=== PATIENT | male | born 1985 | race Caucasian/White ===

== ENCOUNTER 2024-10-24 20:14 | Emergency (ER) | payer MEDICAID, SELFPAY ==
[2024-10-24 20:14] VITALS: BMI 26.2
--- NOTE | 2024-10-24 20:17 | EKG_ITS ---
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
[2024-10-24 20:21] VITALS: BP 145/96; PULSE 95; RESP 18; TEMP 36.7; O2SAT 99
[2024-10-24] MEDS: DIAZEPAM 5 MG TABLET PO (20:52)
--- NOTE | 2024-10-24 22:10 | PD.EDANX ---
ED Anxiety RME/HPI General Chief Complaint: Arrhythmia/Palpitations Stated Complaint: RAPID HEART RATE Time Seen by Provider: 10/24/24 20:40 Arrival date/time: 10/24/24 20:14 39M with history of anxiety, HTN, and possible IBD presents to ED with heart palps. Limitations: no limitations Related Data Previous Rx's ?Medication ?Instructions ?Recorded diazepam 5 mg tablet (Valium) 5 mg PO BID PRN anxiety #5 tabs 10/24/24 Allergies Allergy/AdvReac Type Severity Reaction Status Date / Time Penicillins Allergy Redness of Verified 10/24/24 20:14 Skin Review of Systems Cardiovascular Cardiovascular: Reports as per HPI and Reports palpitations Endocrine Endocrine: Reports palpitations Past Medical History Past Medical History NEUROLOGIC: Negative Neurological Disorders or Seizures CARDIAC: Negative Cardiac Disorders, Congestive Heart Failure, Hypertension or Hypotension RESPIRATORY: Negative Chronic Obstructive Pulmonary Disease (COPD) or Asthma GENITOURINARY: Negative Renal Disease MUSCULOSKELETAL: Negative Musculoskeletal Disorders ENDOCRINE: Negative Diabetes Mellitus Type 1 or Diabetes Mellitus Type 2 HEMATOLOGIC: Negative Blood Disorders or Sickle Cell Disease OTHER HISTORY: Negative Autoimmune Disease, Blood Transfusions, Blood Transfusion Reaction, Anesthesia Reactions, MRSA or Cancer Family History FAMILY HISTORY: Positive Family Cardiac Disorders (father), Family Gastrointestinal Problems (polyps uncle and grandfather) and Family Cancer (aunt); Negative Family Psychiatric Problems or Family Anesthesia Reaction Surgical History SURGICAL: Negative Endocrine Surgery, Ear Surgery, Abdominal Surgery, Nephrectomy, Joint Replacement or Neurologic Surgery Social History SMOKING STATUS: Never smoker SECOND HAND EXPOSURE: No ED Exam General Limitations: Present no limitations General appearance: Present alert, in no apparent distress and anxious Head Head exam: Present atraumatic Eye Eye exam: Present normal appearance, PERRL and EOMI ENT ENT exam: Present normal exam, normal oropharynx and mucous membranes moist Neck Neck exam: Present normal inspection, full ROM and trachea midline Chest Chest inspection: Present normal inspection and symmetric chest wall rise Respiratory Respiratory exam: Present normal lung sounds bilaterally Cardiovascular Cardiovascular exam: Present regular rate, normal rhythm and normal heart sounds Abdominal Exam Abdominal exam: Present soft and normal bowel sounds Extremities Exam Extremities exam: Present normal inspection and full ROM Back Exam Back exam: Present normal inspection and full ROM Neurological Exam Neurological exam: Present alert, oriented X3 and CN II-XII intact Psychiatric Psychiatric exam: Present normal affect and normal mood Skin Skin exam: Present warm, dry, intact and normal color Course Quality Measures none Orders Category Date Time Status EKG (ED ONLY) *Do not use* NOW Care 10/24/24 20:17 Completed EKG (ED Only) Stat Exams 10/24/24 20:17 Draft Diazepam [Valium] Med 10/24/24 20:40 Discontinued 5 mg PO X1 ONE Vital Signs Vital signs: Vital Signs Temperature 98.1 F 10/24/24 20:21 Pulse Rate 95 10/24/24 20:21 Respiratory Rate 18 10/24/24 20:21 Blood Pressure 145/96 H 10/24/24 20:21 Pulse Oximetry (%) 99 10/24/24 20:21 Oxygen Delivery Method Room Air 10/24/24 20:21 Anxiety MDM Narrative MDM Narrative: 39M with history of anxiety, HTN, and possible IBD presents to ED with heart palps. Physical exam reveals clear ENT and lungs. RRR. Patient is afebrile, alert, but anxious. EKG is NSR. Valium improved symptoms. Patient data External records reviewed:: [facility] previous records Clinical information provided by:: patient Social determinants that could affect healthcare access:: mental health Patient has the following chronic illnesses:: history of anxiety, HTN, and possible IBD How is presenting disease/condition affected by chronic disease/condition?: exacerbated by Evaluation data The following diagnostics were reviewed and interpreted by me:: EKG tracing(s) Lab and/or radiology exams considered but not ordered:: ordered Interpretation Summary: above Medications / Prescriptions Medications or Prescriptions considered but not ordered:: ordered Medication administrations:: Medication Administration History Discontinued Medications Diazepam (Diazepam 5 Mg Tablet) 5 mg PO X1 ONE Stop: 10/24/24 20:41 Last Admin: 10/24/24 20:52 Dose: 5 mg Documented By: Consultations Consultation(s) initiated? (list below): No Diagnosis Differential diagnosis anxiety: hyperventilation, panic disorder and acute anxiety Most likely diagnosis given after review of the tests above:: anxiety Admission Indicated Admission indicated?: not indicated Admission Request Was there a request for admission?: No Disposition Plan Disposition Plan: Discharge Discharge Attestation Discharge Attestation: The patient and all family members were given an opportunity to ask questions and understood the discharge instructions. Discharge instructions specifically effects, indications for sooner follow up or return to the emergency department, and the expected course of current diagnosis. Patient condition: Stable Discharge Plan Plan Patient Disposition: HOME (Self Care) Disposition Comment: Stable Prescriptions/Referrals Prescriptions/Med Rec: New diazepam [Valium] 5 mg tablet 5 mg PO BID PRN (Reason: anxiety) Qty: 5 0RF Referrals: Tricia Laird NP [Primary Care Provider] - In 1 week Problem List Clinical Impression: Anxiety Patient/Caregiver Discharge Instructions Education Materials: Your Body's Response to Anxiety Additional Instructions: Please follow-up with PCP within 24-48 hours and return immediately if symptoms worsen. Recommend seeing PCP for SSRI and/or referral to psych/counseling. Print Language: New Zealander Stand Alone Forms: Patient Portal Info Letter PA/ENVIRONMENTAL TECHNICAL OFFICER Supervising Physician SOLOMON/ENVIRONMENTAL TECHNICAL OFFICER Supervising Physician: Dr. Sultana
[2024-10-24 22:32] VITALS: BP 127/83; PULSE 77; RESP 18; TEMP 36.7; O2SAT 98
== END 2024-10-24 23:05 | disposition home or self-care (01) ==
PROVIDERS: Emergency Provider Emergency Medicine; PCP Nurse Practitioner Family
DX: F41.9 Anxiety disorder, unspecified (principal); I10 Essential (primary) hypertension
CPT/HCPCS: 93005; 99283; A9270

== ENCOUNTER → 2024-11-04 | Outpatient (CLI) | payer MEDICAID, SELFPAY ==
--- NOTE | 2024-11-04 14:30 | ECHO_ITS ---
Transthoracic Echo Report Ht (in): 70 Wt (lb): 180 Exam Location: Echo Lab Status: Preadmit General Machine Operator: ALIYAH Hodges^^^^ Indications: Procedure Performed: BP: 127 / 78 HR: 101 Technical Quality: Good MEASUREMENTS (Male / Female) Normal Values 2D ECHO LV Diastolic Diameter PLAX 5.0 cm 4.2 - 5.9 / 3.9 - 5.3 cm LV Systolic Diameter PLAX 3.3 cm IVS Diastolic Thickness 1.0 cm 0.6 - 1.0 / 0.6 - 0.9 cm LVPW Diastolic Thickness 0.8 cm 0.6 - 1.0 / 0.6 - 0.9 cm LV Relative Wall Thickness 0.4 LVOT Diameter 2.1 cm Aortic Root Diameter 3.2 cm LA Systolic Diameter LX 3.4 cm 3.0 - 4.0 / 2.7 - 3.8 cm LV Ejection Fraction MOD 4C 57.1 % LV Cardiac Index MOD 4C 3512.1 cm?/min?m? LV Ejection Fraction 4C AL 58.3 % LV Cardiac Index 4C AL 3754.2 cm?/min?m? Ascending Aorta Diameter 3.3 cm DOPPLER AV Peak Velocity 136.0 cm/s AV Peak Gradient 7.4 mmHg AV Mean Gradient 4.0 mmHg AV Velocity Time Integral 24.5 cm AI Peak Velocity 251.0 cm/s AI Peak Gradient 25.2 mmHg AI Pressure Half Time 322.0 ms LVOT Peak Velocity 132.0 cm/s LVOT Peak Gradient 7.0 mmHg LVOT Velocity Time Integral 25.8 cm LVOT Cardiac Index 4470.8 cm?/min?m? AV Area Cont Eq vti 3.6 cm? AV Area Cont Eq pk 3.4 cm? MV Area PHT 5.2 cm? Mitral E Point Velocity 67.7 cm/s Mitral A Point Velocity 68.7 cm/s Mitral E to A Ratio 1.0 LV E' Lateral Velocity 11.1 cm/s Mitral E to LV E' Lateral Ratio 6.1 LV E' Septal Velocity 9.4 cm/s Mitral E to LV E' Septal Ratio 7.2 TR Peak Velocity 253.5 cm/s TR Peak Gradient 25.7 mmHg PV Peak Velocity 121.0 cm/s PV Peak Gradient 5.9 mmHg RVOT Peak Velocity 87.9 cm/s FINDINGS Left Ventricle Normal left ventricular size, wall thickness, systolic function with no obvious regional wall motion abnormalities. There is grade I diastolic dysfunction of the left ventricle (impaired relaxation pattern). The left ventricular ejection fraction is normal, estimated at 60-65%. Right Ventricle The right ventricle is normal in size and systolic function. The estimated right ventricular systolic pressure, 26 mmHg. Left Atrium The left atrium is normal by two-dimensional, color flow and Doppler imaging with no structural abnormalities, no thrombus formation present. Right Atrium The right atrium is normal by two-dimensional imaging, color flow and Doppler imaging with no structural abnormalities, no thrombus formation present. Atrial Septum The interatrial septum appears normal with no evidence of a shunt. Aorta The aorta is normal by two-dimensional, color flow and Doppler interrogation. Mitral Valve Trace to mild mitral regurgitation. Aortic Valve Trace to mild aortic valve regurgitation. Tricuspid Valve There is mild tricuspid valve regurgitation. Pulmonic Valve Trivial pulmonic valve regurgitation. Vessels The pulmonary artery appears normal. The inferior vena cava pulmonary and hepatic veins appear normal. Pericardium The pericardium is normal by two-dimensional imaging. There is no significant pericardial effusion. CONCLUSIONS Indications: Palpitations Normal LV size and function with an estimated EF of 60 to 65%. Normal diastolic function. Normal RV size and function. Trace MR and TR Hudson Patricia (Electronically Signed) Final Date: 06 November 2024 00:32
== END | disposition home or self-care (01) ==
PROVIDERS: PCP Nurse Practitioner Family; Referring Provider Nurse Practitioner Family; Visit Provider Nurse Practitioner Family
DX: I08.1 Rheumatic disorders of both mitral and tricuspid valves (principal)
CPT/HCPCS: 93306

== ENCOUNTER 2024-11-11 16:56 | Emergency (ER) | payer MEDICAID, SELFPAY ==
[2024-11-11 16:57] VITALS: BMI 25.2
[2024-11-11 17:48] VITALS: BP 120/81; PULSE 64; RESP 18; TEMP 36.9; O2SAT 99
--- NOTE | 2024-11-11 17:51 | PD.EDRME ---
Rapid Medical Screening Exam RME Arrival date/time: 11/11/24 16:56 Chief Complaint: Arrhythmia/Palpitations Time Seen by Provider: 11/11/24 17:09 Vital signs: Vital Signs Temperature 98.5 F 11/11/24 17:48 Pulse Rate 64 11/11/24 17:48 Respiratory Rate 18 11/11/24 17:48 Blood Pressure 120/81 11/11/24 17:48 Pulse Oximetry (%) 99 11/11/24 17:48 Oxygen Delivery Method Room Air 11/11/24 17:48 RME Narrative: Palpitations and dizziness that initiated today, smart watch stated patient was in A-fib. Denies cardiac history. Reports mild chest pain.
--- NOTE | 2024-11-11 17:52 | EKG_ITS ---
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
--- NOTE | 2024-11-11 17:52 | XR_ITS ---
Examination: PA chest single view TECHNIQUE: Upright PA chest single view Examination time: November 11, 2024 at 1810 hours INDICATIONS: Chest pain today with shortness of breath FINDINGS: Normal heart size Lungs are clear. Osseous structures are intact IMPRESSION: No active disease
[2024-11-11 18:07] LABS: Basophils # (Auto) 0.1 Thou/mm3 (0.0-0.2); Basophils % (Auto) 1 % (0-2.5); Eosinophils # (Auto) 0.2 Thou/mm3 (0.0-0.5); Eosinophils % (Auto) 2 % (0-10); Hematocrit 40.6 % (41.0-53.0); Hemoglobin 14.3 g/dL (13.5-16.0); Immature Granulocytes % (Auto) 0 % (0-0); Immature Granulocytes Auto 0.02 Thou/mm3 (0.00-0.00); Lymphocytes # (Auto) 1.5 Thou/mm3 (1.0-4.8); Lymphocytes % (Auto) 23 % (10-50); Mean Corpuscular HGB Conc 35.2 g/dl (31.0-37.0); Mean Corpuscular Hemoglobin 29.9 pg (25.0-35.0); Mean Corpuscular Volume 85 fL (80-100); Monocytes # (Auto) 0.4 Thou/mm3 (0.0-0.8); Monocytes % (Auto) 6 % (0-12); Neutrophils # (Auto) 4.4 Thou/mm3 (1.8-7.7); Neutrophils % (Auto) 68 % (37-80); Nucleated Red Blood Cell % 0 /100 WBC (0); Platelet Count 222 Thou/mm3 (140-440); RDW Standard Deviation 39.7 fL (35.1-43.9); Red Blood Count 4.79 Miln/mm3 (4.50-5.90); White Blood Count 6.5 Thou/mm3 (3.8-10.6)
[2024-11-11 19:00] LABS: Alanine Aminotransferase 15 U/L (10-49); Albumin, Serum 4.6 gm/dL (3.5-5.0); Alkaline Phosphatase 60 U/L (46-116); Anion Gap 7 (7-16); Aspartate Amino Transferase 13 U/L (0-34); BUN/Creatinine Ratio 12 Ratio (12-20); Bilirubin,Total 0.4 mg/dL (0.3-1.2); Blood Urea Nitrogen 14 mg/dL (9-23); Calcium 9.5 mg/dL (8.3-10.6); Calcium (Corrected) 9.5 mg/dL (8.5-10.1); Carbon Dioxide 26.7 mMol/L (20.0-31.0); Chloride 104 mMol/L (98-107); Creatinine (Component) 1.2 mg/dL (0.6-1.3); Estimated Creatinine Clearance 83.6 mL/min (>60); Free T4 (Free Thyroxine) 1.09 ng/dL (0.89-1.76); Globulin 2.3 gm/dL (2.3-3.5); Glucose 123 mg/dL (74-106); Magnesium 2.3 mg/dL (1.6-2.6); Osmolality,Calculated 277 (275-295); Potassium 3.9 mMol/L (3.4-5.1); Sodium 138 mMol/L (136-145); Thyroid Stimulating Hormone 1.11 uIU/mL (0.55-4.78); Total Protein 6.9 gm/dL (5.7-8.2); Troponin I < 0.002 ng/mL (0.0-0.045); eGFR > 60 See Note
[2024-11-11 20:16] LABS: B-Type Natriuretic Peptide < 20 pg/mL (0-100)
[2024-11-11 20:25] VITALS: BP 134/85; PULSE 87; RESP 16; TEMP 36.8; O2SAT 100
--- NOTE | 2024-11-11 21:30 | PD.EDARRY ---
ED Arrhythmia Palp. RME/HPI General Chief Complaint: Arrhythmia/Palpitations Stated Complaint: palpitations x 30 min ago, hx anxiety Time Seen by Provider: 11/11/24 17:09 Arrival date/time: 11/11/24 16:56 RME / HPI RME / HPI narrative: Palpitations and dizziness that initiated today, smart watch stated patient was in A-fib. Denies cardiac history. Reports mild chest pain. This section includes all my notes and documentations, including HPI, PE, and ED course. Juan Sultana MD HPI: 39-year-old male here to be evaluated with palpitations on and off for months. But had 2 episodes today which showed atrial fibrillation on his phone. No chest pain or shortness of breath. No fever or chills. No syncope or near syncope. No diaphoresis. No nausea or vomiting. No leg pain or swelling. No other complaints. ROS: All negative except as documented in HPI. Physical Exam: General: Alert and oriented. Appears anxious. Eyes: Conjunctivae and lids clear. ENT: No nasal congestion. Neck: Supple. Heart: RRR. Lungs: No respiratory distress. Good air movement. No rhonchi, wheezing, rales. Abdomen: Soft and nontender. Skin: Warm and dry. Neuro: Alert and oriented X 3. I reviewed all diagnostic test results. My interpretation of the EKG is sinus rhythm with no acute ST?T changes. My interpretation of the chest x-ray is no acute findings. Blood tests unremarkable, including negative troponin and normal TSH. At this point, diagnoses include palpitations, probably due to anxiety. Prescribed low-dose metoprolol and recommended more outpatient cardiac workup. Based on my best medical judgment, made decision no further evaluation or treatment indicated at this time. Patient understands and agrees to the discharge instructions customized and printed, see below. Discharge instructions from Dr. Sultana: 1. After extensive evaluation, there is no life-threatening condition.? Such as heart attack or pneumothorax (collapsed lung). 2. Your symptoms may be due to underlying stress or anxiety or nerves.? This is fairly common. 3. Take small dose of metoprolol daily as prescribed. Will slow your heart and help your symptoms. 4. See a private doctor on 11/12/2024 for recheck and further care. To make sure there is no serious underlying heart condition, ask to help you get more tests for your heart that cannot be done here in the ER.? Such as Holter Monitor (cardiac monitoring at home from a day to even a month), heart stress test (on treadmill or with medication), echocardiogram (imaging of your heart structures), heart catherization (checking for blockages in your heart arteries), and a referral to see a Packaging Materials Inspector. 5. Seek immediate medical care with worsening or with any concerns.?? Juan Sultana MD Related Data Previous Rx's ?Medication ?Instructions ?Recorded diazepam 5 mg tablet (Valium) 5 mg PO BID PRN anxiety #5 tabs 10/24/24 metoprolol succinate 25 mg 25 mg PO QDAY #30 tabs 11/11/24 tablet,extended release 24 hr Allergies Allergy/AdvReac Type Severity Reaction Status Date / Time Penicillins Allergy Redness of Verified 10/24/24 20:14 Skin Course Quality Measures none Orders Category Date Time Status EKG (ED ONLY) *Do not use* NOW Care 11/11/24 17:52 Completed CXR [XR chest 1V] Stat Exams 11/11/24 17:52 Completed EKG (ED Only) Stat Exams 11/11/24 17:52 Draft BNP [B-Type Natriuretic Peptide] Stat Lab 11/11/24 17:59 Completed CBC Stat Lab 11/11/24 17:59 Completed CMP [Comprehensive Metabolic Panel] Stat Lab 11/11/24 17:59 Completed Free T4 (Free Thyroxine) Stat Lab 11/11/24 17:59 Completed Magnesium Stat Lab 11/11/24 17:59 Completed TSH [Thyroid Stimulating Hormone] Stat Lab 11/11/24 17:59 Completed Troponin I Stat Lab 11/11/24 17:59 Completed Vital Signs Vital signs: Vital Signs Temperature 98.5 F 11/11/24 17:48 Pulse Rate 64 11/11/24 17:48 Respiratory Rate 18 11/11/24 17:48 Blood Pressure 120/81 11/11/24 17:48 Pulse Oximetry (%) 99 11/11/24 17:48 Oxygen Delivery Method Room Air 11/11/24 17:48 Arrhythmia/Palpitations Patient data External records reviewed:: [facility] previous records Clinical information provided by:: patient and spouse Social determinants that could affect healthcare access:: none Patient has the following chronic illnesses:: Anxiety How is presenting disease/condition affected by chronic disease/condition?: exacerbated by Evaluation data The following diagnostics were reviewed and interpreted by me:: lab results, radiology exam(s) and EKG tracing(s) Lab and/or radiology exams considered but not ordered:: None Interpretation Summary: Normal diagnostics Medications / Prescriptions Medications or Prescriptions considered but not ordered:: None Medication administrations:: None Consultations Consultation(s) initiated? (list below): No Diagnosis Differential diagnosis arrhythmia/palpitations: palpitations, anxiety, sinus tachycardia, artial fibrillation, artial flutter, ventricular premature beats, supraventricular tachycardia and ventricular tachycardia Most likely diagnosis given after review of the tests above:: Anxiety Admission Indicated Admission indicated?: not indicated Explain why admission is indicated or not indicated:: There is no indication for admission. Admission Request Was there a request for admission?: No Disposition Plan Disposition Plan: Discharge Discharge Attestation Discharge Attestation: The patient and all family members were given an opportunity to ask questions and understood the discharge instructions. Discharge instructions specifically effects, indications for sooner follow up or return to the emergency department, and the expected course of current diagnosis. Patient condition: Stable Discharge Plan Plan Patient Disposition: HOME (Self Care) Prescriptions/Referrals Prescriptions/Med Rec: New metoprolol succinate 25 mg tablet extended release 24 hr 25 mg PO QDAY Qty: 30 0RF No Action diazepam [Valium] 5 mg tablet 5 mg PO BID PRN (Reason: anxiety) Qty: 5 0RF Referrals: Tricia Laird PIECE MEAT TRIMMER [Primary Care Provider] - In 1 week Problem List Clinical Impression: Palpitations Patient/Caregiver Discharge Instructions Discharge Activity: activity as tolerated Education Materials: ED Palpitations Additional Instructions: Discharge instructions from Dr. Sultana: 1. After extensive evaluation, there is no life-threatening condition.? Such as heart attack or pneumothorax (collapsed lung). 2. Your symptoms may be due to underlying stress or anxiety or nerves.? This is fairly common. 3. Take small dose of metoprolol daily as prescribed. Will slow your heart and help your symptoms. 4. See a private doctor on 11/12/2024 for recheck and further care. To make sure there is no serious underlying heart condition, ask to help you get more tests for your heart that cannot be done here in the ER.? Such as Holter Monitor (cardiac monitoring at home from a day to even a month), heart stress test (on treadmill or with medication), echocardiogram (imaging of your heart structures), heart catherization (checking for blockages in your heart arteries), and a referral to see a Packaging Materials Inspector. 5. Seek immediate medical care with worsening or with any concerns.?? Print Language: Arabic Stand Alone Forms: Nadeen Award Info., Patient Portal Info Letter
[2024-11-11 22:40] VITALS: BP 138/96; PULSE 72; RESP 15; TEMP 36.8; O2SAT 99
== END 2024-11-11 22:41 | disposition home or self-care (01) ==
PROVIDERS: Physician Assistant; Emergency Provider Emergency Medicine; PCP Nurse Practitioner Family
DX: R00.2 Palpitations (principal); R42 Dizziness and giddiness; I48.91 Unspecified atrial fibrillation; R07.9 Chest pain, unspecified
CPT/HCPCS: 36415; 71045; 80053; 83735; 83880; 84439; 84443; 84484; 85025; 93005; 99283

== ENCOUNTER 2024-12-04 08:05 | Day surgery (SDC) | payer MEDICAID, SELFPAY ==
[2024-12-03 13:38] VITALS: BMI 25.1
[2024-12-04] VITALS (17 sets, daily range): BP systolic 101–154; BP diastolic 76–117; PULSE 76–138; RESP 12–20; TEMP 36.2–36.3; O2SAT 94–100; BMI 24.5
[2024-12-04] MEDS: RINGERS LACTATED 1000 ML 1,000 ML 20 ML IV (10:58)
[2024-12-04] MEDS: DiphenhydrAMINE INJ 50 MG/ML VIAL 25 MG IV (11:02)
[2024-12-04] MEDS: MEPERIDINE INJ 25 MG/ML VIAL (ASD USE ONLY) IV (11:05)
[2024-12-04] MEDS: fentaNYL CIT INJ 50 mCg/ML AMP 2ML (ASD USE ONLY) IV (11:07)
[2024-12-04] MEDS: MIDAZOLAM INJ 1 MG/ML VIAL 2 ML (ASD USE ONLY) 2 MG IV (11:22)
[2024-12-04] MEDS: ONDANSETRON INJ 2 MG/ML INJ 2 ML 4 MG IV (11:23)
[2024-12-04] MEDS: LIDOCAINE JELLY 2% (Urojet) 10 ML TUBE TOP (11:30)
--- NOTE | 2024-12-04 13:21 | SUR.PHASEII ---
1210 Pt more awake and alert. Denies pain, N/V or difficulty swallowing. Migdalia PO fluids. 1235 Pt assessment unchanged, except pt c/o cramping. Amb with steady gait. Able to dress self. Pt and given dc instructions. Both state understanding. Pt back to bathroom. Released flatus. States, feels better. Meets dc criteria-to home.
== END 2024-12-04 12:35 | disposition home or self-care (01) ==
PROVIDERS: PCP Nurse Practitioner Family; Referring Provider Internal Medicine Gastroenterology; Visit Provider Internal Medicine Gastroenterology
PROC: 0DBE8ZX Excision of Large Intestine, Via Natural or Artificial Opening Endoscopic, Diagnostic (ICD-10-PCS; CPT 45380; principal; 2024-12-04 10:00)
PROC: (CPT 43239; 2024-12-04 10:00)
DX: D12.2 Benign neoplasm of ascending colon (principal); K64.9 Unspecified hemorrhoids; K29.50 Unspecified chronic gastritis without bleeding
CPT/HCPCS: 45385; 45380; 43239; A4649; J1200; J2175; J2250; J2405; J3010; J7120

== ENCOUNTER 2025-01-13 19:22 | Emergency (ER) | payer MEDICAID, SELFPAY ==
[2025-01-13 19:22] VITALS: BMI 24.8
--- NOTE | 2025-01-13 19:24 | EKG_ITS ---
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
[2025-01-13 20:23] VITALS: BP 122/78; PULSE 83; RESP 18; TEMP 37; O2SAT 98
--- NOTE | 2025-01-13 20:56 | EDNOTE_ITS ---
ED Arrhythmia Palp. RME/HPI General Chief Complaint: Arrhythmia/Palpitations Stated Complaint: RAPID HR, CHEST PAIN SINCE LAST NIGHT Time Seen by Provider: 01/13/25 20:25 Arrival date/time: 01/13/25 19:22 39M with history of anxiety and HTN presents to ED with episode of heart palps and CP yesterday. Patient took 2 mg Valiu, which helped a bit. Patient has pending stress test and Holter monitor with engraver hand soft metals on Sunday. Limitations: no limitations Related Data Home Medications ?Medication ?Instructions ?Recorded ?Confirmed lisinopril 10 mg tablet 10 mg PO DAILY High blood pr essure 12/03/24 12/04/24 diazepam 2 mg tablet 2 mg PO BID 12/04/24 5 Held on 12/04/24. Instructions: Resume on 12/05/24. dicyclomine 10 mg capsule 10 mg PO BID PRN abdominal p ain 12/04/24 12/04/24 loratadine 10 mg tablet (Allergy 10 mg PO QDAY 5 12/04/24 Relief (loratadine)) Allergies Allergy/AdvReac Type Severity Reaction Status Date / Time Penicillins Allergy Redness of Verified 01/13/25 19:24 Skin Review of Systems Review of Systems Systems Reviewed: All systems reviewed, normal except as documented Constitutional Constitutional: Reports system reviewed and no additional complaints, except as documented, Denies fever(s) and Denies headache(s) ENT Ears, Nose, Mouth, and Throat: Denies disequilibrium and Denies headache(s) Cardiovascular Cardiovascular: Reports system reviewed and no additional complaints, except as documented, Reports as per HPI, Reports chest pain, Denies dyspnea and Reports palpitations Respiratory Respiratory: Reports system reviewed and no additional complaints, except as documented, Denies cough and Denies dyspnea Gastrointestinal Gastrointestinal: Reports system reviewed and no additional complaints, except as documented, Denies abdominal pain, Denies nausea and Denies vomiting Neurologic Neurologic: Reports system reviewed and no additional complaints, except as documented, Denies confusion, Denies disequilibrium and Denies headache(s) Psychiatric Psychiatric: Denies confusion Endocrine Endocrine: Reports palpitations Past Medical History Past Medical History NEUROLOGIC: Negative Neurological Disorders or Seizures CARDIAC: Positive Cardiac Disorders (tachycardia); Negative Congestive Heart Failure, Hypertension or Hypotension RESPIRATORY: Negative Chronic Obstructive Pulmonary Disease (COPD) or Asthma GASTROINTESTINAL: Positive Gastrointestinal Disorders (anal fissure), Gastrointestinal Bleed and Hemorrhoids GENITOURINARY: Negative Genitourinary Disorders or Renal Disease MUSCULOSKELETAL: Positive Musculoskeletal Disorders and Arthritis ENDOCRINE: Negative Endocrine Disorders, Diabetes Mellitus Type 1 or Diabetes Mellitus Type 2 HEMATOLOGIC: Negative Blood Disorders or Sickle Cell Disease PSYCHO/SOCIAL: Positive Anxiety OTHER HISTORY: Positive Chicken Pox; Negative Hospitalization, Autoimmune Disease, Falls, Blood Transfusions, Blood Transfusion Reaction, Anesthesia Reactions, MRSA or Cancer Family History FAMILY HISTORY: Positive Family Cardiac Disorders, Family Gastrointestinal Problems and Family Cancer; Negative Family Psychiatric Problems or Family Anesthesia Reaction Surgical History SURGICAL: Negative Endocrine Surgery, Ear Surgery, Abdominal Surgery, Nephrectomy, Joint Replacement or Neurologic Surgery Social History SMOKING STATUS: Never smoker SECOND HAND EXPOSURE: No ED Exam General Limitations: Present no limitations General appearance: Present alert, in no apparent distress and anxious Head Head exam: Present atraumatic Eye Eye exam: Present normal appearance, PERRL and EOMI ENT ENT exam: Present normal exam, normal oropharynx and mucous membranes moist Neck Neck exam: Present normal inspection, full ROM and trachea midline Chest Chest inspection: Present normal inspection and symmetric chest wall rise Respiratory Respiratory exam: Present normal lung sounds bilaterally Cardiovascular Cardiovascular exam: Present regular rate, normal rhythm and normal heart sounds Abdominal Exam Abdominal exam: Present soft and normal bowel sounds Extremities Exam Extremities exam: Present normal inspection and full ROM Back Exam Back exam: Present normal inspection and full ROM Neurological Exam Neurological exam: Present alert, oriented X3 and CN II-XII intact Psychiatric Psychiatric exam: Present normal affect and normal mood Skin Skin exam: Present warm, dry, intact and normal color Course Quality Measures none Orders Category Date Time Status EKG (ED ONLY) *Do not use* NOW Care 01/13/25 19:24 Completed EKG (ED Only) Stat Exams 01/13/25 19:24 Draft Vital Signs Vital signs: Vital Signs Temperature 98.6 F 01/13/25 20:23 Pulse Rate 83 01/13/25 20:23 Respiratory Rate 18 01/13/25 20:23 Blood Pressure 122/78 01/13/25 20:23 Pulse Oximetry (%) 98 01/13/25 20:23 Oxygen Delivery Method Room Air 01/13/25 20:23 Arrhythmia/Palpitations MDM Narrative MDM Narrative:: 39M with history of anxiety and HTN presents to ED with episode of heart palps and CP yesterday. Patient took 2 mg Valiu, which helped a bit. Patient has pending stress test and Holter monitor with engraver hand soft metals on Sunday. Physical exam reveals normal WOB. Patient is afebrile, alert, but anxious. EKG is NSR. Dry Cell Sealer given. Patient data External records reviewed:: [facility] previous records Clinical information provided by:: patient Social determinants that could affect healthcare access:: mental health Patient has the following chronic illnesses:: anxiety How is presenting disease/condition affected by chronic disease/condition?: exacerbated by Evaluation data The following diagnostics were reviewed and interpreted by me:: EKG tracing(s) Lab and/or radiology exams considered but not ordered:: ordered Interpretation Summary: above Medications / Prescriptions Medications or Prescriptions considered but not ordered:: not ordered Medication administrations:: n/a Consultations Consultation(s) initiated? (list below): No Diagnosis Differential diagnosis arrhythmia/palpitations: palpitations, anxiety, sinus tachycardia, artial fibrillation, artial flutter, ventricular premature beats, supraventricular tachycardia, ventricular tachycardia and WPW Most likely diagnosis given after review of the tests above:: heart palps Admission Indicated Admission indicated?: not indicated Admission Request Was there a request for admission?: No Disposition Plan Disposition Plan: Discharge Discharge Attestation Discharge Attestation: The patient and all family members were given an opportunity to ask questions and understood the discharge instructions. Discharge instructions specifically effects, indications for sooner follow up or return to the emergency department, and the expected course of current diagnosis. Patient condition: Stable Discharge Plan Plan Patient Disposition: HOME (Self Care) Discharge Disposition comment: Stable Prescriptions/Referrals Prescriptions/Med Rec: No Action lisinopril 10 mg tablet 10 mg PO DAILY diazepam 2 mg tablet 2 mg PO BID Patient Comments: TAKE 1 TABLET BY MOUTH TWICE DAILY NEEDED dicyclomine 10 mg capsule 10 mg PO BID PRN (Reason: abdominal pain) Patient Comments: TAKE 1 CAPSULE BY MOUTH TWICE DAILY NEEDED loratadine [Allergy Relief (loratadine)] 10 mg tablet 10 mg PO QDAY Referrals: Tricia Laird BINDER LOCKSTITCH [Primary Care Provider] - In 1 week Problem List Clinical Impression: Palpitations Patient/Caregiver Discharge Instructions Education Materials: ED Palpitations Additional Instructions: Please follow-up with PCP within 24-48 hours and return immediately if symptoms worsen. Can try 4 mg Diazepam to see if that helps. Good luck with stress test. Print Language: Tamazight Stand Alone Forms: Patient Portal Info Letter PA/DRAFTER ELECTROMECHANICAL Supervising Physician PA/DRAFTER ELECTROMECHANICAL Supervising Physician: Dr. Sultana
== END 2025-01-13 20:55 | disposition home or self-care (01) ==
PROVIDERS: Emergency Provider Emergency Medicine; PCP Nurse Practitioner Family
DX: R00.2 Palpitations (principal); R07.9 Chest pain, unspecified; F41.9 Anxiety disorder, unspecified; I10 Essential (primary) hypertension
CPT/HCPCS: 93005; 99283

== ENCOUNTER 2025-04-06 09:03 | Outpatient (AMB) | payer MEDICAID, SELFPAY ==
[2025-04-06 09:20] VITALS: BP 106/66; PULSE 61; RESP 19; TEMP 36.8; O2SAT 98; BMI 25.3
--- NOTE | 2025-04-06 09:20 | ACNOTE_ITS ---
Vital Signs 04/06/25 09:20 Height 1.78 m Height Method Stated Weight 80.399 kg Weight Measurement Method Standing Scale BMI 25.3 BP 106/66 Blood Pressure Source Automatic Cuff Blood Pressure Location Right Upper Arm Position Sitting Respiration 19 Pulse 61 Pulse Source Monitor Temp 98.3 F Temp Source Temporal Artery Scan Pulse Oximetry (%) 98 Oxygen Delivery Method Room Air Allergies/Meds Allergies & Medications Allergies Penicillins Allergy (Verified 01/13/25 19:24) Redness of Skin MA Intake Visit Data Collection New Patient or Established: Established Patient (seen at [facility] within 3 years) Seen by Clinical Staff ONLY (RN/MA): No Reason for Visit:: FOLLOW UP Pain Present Currently: No Solutions Market Consultant Required: No PCP or OBGYN visit in last 3 months: No Do You Feel Safe at Home: Yes Authorities Contacted: N/A Smoking Status Smoking Status: Never smoker Immunization / Flu Flu Vaccine in the Last 12 Months: No Flu Vaccine Exclusion Criteria: No Exclusion Criteria Past Medical History Past Medical History NEUROLOGIC: Negative Neurological Disorders or Seizures CARDIAC: Positive Cardiac Disorders (tachycardia); Negative Congestive Heart Failure, Hypertension or Hypotension RESPIRATORY: Negative Chronic Obstructive Pulmonary Disease (COPD) or Asthma GASTROINTESTINAL: Positive Gastrointestinal Disorders (anal fissure), Gastrointestinal Bleed and Hemorrhoids GENITOURINARY: Negative Genitourinary Disorders or Renal Disease MUSCULOSKELETAL: Positive Arthritis ENDOCRINE: Negative Endocrine Disorders, Diabetes Mellitus Type 1 or Diabetes Mellitus Type 2 HEMATOLOGIC: Negative Blood Disorders or Sickle Cell Disease PSYCHO/SOCIAL: Positive Anxiety OTHER HISTORY: Positive Chicken Pox; Negative Hospitalization, Autoimmune Disease, Falls, Blood Transfusions, Blood Transfusion Reaction, Anesthesia Reactions, MRSA or Cancer Family History FAMILY HISTORY: Positive Family Cardiac Disorders, Family Gastrointestinal Problems and Family Cancer; Negative Family Psychiatric Problems or Family Anesthesia Reaction Surgical History SURGICAL: Negative Endocrine Surgery, Ear Surgery, Abdominal Surgery, Nephrectomy, Joint Replacement or Neurologic Surgery Social History SMOKING STATUS: Smoking status: Never smoker SECOND HAND EXPOSURE: second hand exposure: No ALCOHOL: Alcohol Intake: Former HOUSING: Housing: House LIVES WITH: Lives With: Significant Other Patient Portal Questionaires Social History Living Situation History Housing: House Tobacco History Smoking Status: Never smoker Second Hand Smoke Exposure: No Alcohol History Alcohol Intake: Former Domestic Abuse History Do You Feel Safe at Home: Yes Review of Systems Report any current symptoms Only answer those that you have currently: General Complaints fatigue: No headache(s): No generally not feeling well: No Heart & Circulation chest pain: No chest pain at rest: No excessive sweating: No Past Medical History Past Medical History Have you ever been diagnosed with any of the following: Neurological Problems Seizures: No Cardiology Problems Congestive Heart Failure: No Hypertension: No Hypotension: No Respiratory Problems Chronic Obstructive Pulmonary Disease (COPD): No Asthma: No Stomache/Intestinal Problems Gastrointestinal Bleed: Yes Hemorrhoids: Yes Genital/Urinary Problems Renal Disease: No Musculoskeletal Problems Arthritis: Yes Endocrine Problems Diabetes Mellitus Type 1: No Diabetes Mellitus Type 2: No Blood Problems Sickle Cell Disease: No Psychologic Problems Anxiety: Yes Other Problems Hospitalization: No Autoimmune Disease: No Falls: No Blood Transfusions: No Blood Transfusion Reaction: No Anesthesia Reactions: No MRSA: No Chicken Pox: Yes Cancer: No History of Present Illness HPI Narrative Mr. Lechuga is a new patient to the resident clinic. He has a past medical history of HTN and gastritis. 04/06/25: The patient presents to the clinic with primary complain of intermittent episodes of heart palpitations, sweating, and feelings of doom that started a few years ago. When these symptoms first started, the episodes were infrequent, about 1 month per episode, but over time the frequency has been increasing to once every few weeks, and continues to become more frequent over time. The patient states that the valium 2mg that is prescribed to him helps, but he tries to not take it more than once a week. The patient isn't fully sure what triggers these episodes, but believes that it may be linked to being in open spaces like the grocery store. The patient has tried use Zoloft in the past, but only tried it for a week as it seemed to make the symptoms worse. The patient noted that he is scared that he might of a heart attack like his father and grandfather. Review of Systems Review of Systems Systems Reviewed: All systems reviewed, normal except as documented Constitutional Constitutional: Denies fatigue, Denies headache(s) and Denies malaise ENT Ears, Nose, Mouth, and Throat: Denies headache(s) Cardiovascular Cardiovascular: Denies chest pain, Denies chest pain at rest and Denies diaphoresis Neurologic Neurologic: Denies headache(s) Endocrine Endocrine: Denies fatigue Objective/Exam Narrative Physical exam: Physical Exam: General: Alert, no acute distress. Anxious. Skin: Warm, dry, intact, no obvious rash. Head: Normocephalic, atraumatic. Eye: Normal conjunctiva, PERRL. Neuro: No focal deficits observed. Conversant, moving all extremities. No overt cerebellar signs/incoordination. Psychiatric: Cooperative, appropriate affect. Assessment & Plan Diagnosis / Problem List (1) Generalized anxiety disorder with panic attacks: Status: Acute Assessment & Plan: Patient stated that he has been having intermittent episodes of heart palpitations, increased sweating, and a feeling of impending doom. Triggered by open spaces and intermittent episodes are becoming more frequent. Patient states that the Valium 2mg he takes periodically helps calm these episodes. Patient noted to have anxious appearance on 04/06. Plan: - Complete cardiology 24h Holter monitor and then return to clinic after completion - Will start Paroxetine 10mg daily at next visit and titrate up by 10mg per week until patient achieves improvement in symptoms, max dose 60mg per day - Patient to use diazepam 2mg for breakthrough panic attacks while up-titrating Paroxetine (2) Intermittent palpitations: Status: Acute Assessment & Plan: The patient has been to [facility] ED 01/13/25 due to concerns of his heart palpitations during these episodes. The ED discharged him without any acute interventions. The patient was instructed to follow up with cardiology. The patient sees Dr. Grey in [place], and has had echocardiogram and cardiac angiogram performed, both of which were negative. The patient was instructed to follow up with Dr. Grey on Sunday04/08/25 to start Holter monitor for 24 hours. Plan: - Patient to follow up with ergonomist Dr. Grey for Holter monitor (3) Gastritis, unspecified, without bleeding: Status: Acute Qualifiers: Gastritis type: unspecified gastritis Chronicity: unspecified Qualified Code(s): K29.70 - Gastritis, unspecified, without bleeding Assessment & Plan: Patient sees Dr. Swann outpatient for GI. Patient had EGD and colonoscopy in 12/01/24, which showed gastritis in stomach and hemorrhoids and a single polyp respectively. The polyp was noted to be hyperplastic polyp. The patient had repeat colonoscopy, which was also negative. Plan: - Patient to follow up with Dr. Swann for management of gastritis Additional Assessment Patient plan of care was discussed with the senior resident Dr. Maraivlla and attending physician Dr. Montero. Tad Lackey, PGY1 Office Procedures [facility] Level of Care Nursing/Assessment Patient Status: Established Patient Nursing Assessment/Reassessment: Medication Reconciliation and Vital Signs Coordination of Care: Complex Care and Chronic Disease 1-5, Consent,records obtained, informed consent, 1 Ins Authorization, Lab and Imaging orders and Results/Orders obtained Established Patient Charge Established Patient Point Assignment: 85 Established Patient Point Charge: Level 3 (80-115)
== END 2025-04-06 10:37 | disposition home or self-care (01) ==
LOC: HODAHC 09:03
PROVIDERS: Supervising Provider Student in an Organized Health Care Education/Training Program; Visit Provider Student in an Organized Health Care Education/Training Program
DX: F41.0 Panic disorder [episodic paroxysmal anxiety] (principal); R00.2 Palpitations; K29.70 Gastritis, unspecified, without bleeding
CPT/HCPCS: 99213; G0463

== ENCOUNTER 2025-04-20 16:59 | Emergency (ER) | payer MEDICAID, SELFPAY ==
[2025-04-20 17:00] VITALS: BMI 27.3
--- NOTE | 2025-04-20 17:03 | EKG_ITS ---
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
[2025-04-20 17:17] VITALS: BP 116/74; PULSE 98; RESP 18; TEMP 37.5; O2SAT 96
[2025-04-20 17:54] LABS: Basophils # (Auto) 0.0 Thou/mm3 (0.0-0.2); Basophils % (Auto) 1 % (0-2.5); Eosinophils # (Auto) 0.0 Thou/mm3 (0.0-0.5); Eosinophils % (Auto) 0 % (0-10); Hematocrit 41.0 % (41.0-53.0); Hemoglobin 14.1 g/dL (13.5-16.0); Immature Granulocytes Auto 0.02 Thou/mm3 (0.00-0.00); Lymphocytes # (Auto) 0.6 Thou/mm3 (1.0-4.8); Lymphocytes % (Auto) 8 % (10-50); Mean Corpuscular HGB Conc 34.4 g/dl (31.0-37.0); Mean Corpuscular Hemoglobin 29.7 pg (25.0-35.0); Mean Corpuscular Volume 87 fL (80-100); Monocytes # (Auto) 0.3 Thou/mm3 (0.0-0.8); Monocytes % (Auto) 4 % (0-12); Neutrophils # (Auto) 6.3 Thou/mm3 (1.8-7.7); Neutrophils % (Auto) 87 % (37-80); Nucleated Red Blood Cell # 0.00 Thou/mm3 (0.00-0.00); Nucleated Red Blood Cell % 0 /100 WBC (0); Platelet Count 209 Thou/mm3 (140-440); RDW Standard Deviation 37.6 fL (35.1-43.9); Red Blood Count 4.74 Miln/mm3 (4.50-5.90); White Blood Count 7.3 Thou/mm3 (3.8-10.6)
[2025-04-20 18:13] LABS: Alanine Aminotransferase 13 U/L (10-49); Albumin, Serum 5.0 gm/dL (3.5-5.0); Albumin/Globulin Ratio 2.0 (1.2-2.2); Alkaline Phosphatase 59 U/L (46-116); Anion Gap 8 (7-16); Aspartate Amino Transferase 16 U/L (0-34); BUN/Creatinine Ratio 10 Ratio (12-20); Bilirubin,Total 0.6 mg/dL (0.3-1.2); Blood Urea Nitrogen 12 mg/dL (9-23); Calcium 10.4 mg/dL (8.3-10.6); Calcium (Corrected) 10.4 mg/dL (8.5-10.1); Carbon Dioxide 27.1 mMol/L (20.0-31.0); Chloride 105 mMol/L (98-107); Creatinine (Component) 1.2 mg/dL (0.6-1.3); Estimated Creatinine Clearance 78.4 mL/min (>60); Globulin 2.5 gm/dL (2.3-3.5); Glucose 107 mg/dL (74-106); Osmolality,Calculated 279 (275-295); Potassium 4.2 mMol/L (3.4-5.1); Sodium 140 mMol/L (136-145); Thyroid Stimulating Hormone 0.48 uIU/mL (0.55-4.78); Total Protein 7.5 gm/dL (5.7-8.2); Troponin I < 0.002 ng/mL (0.0-0.045); eGFR > 60 See Note
[2025-04-20 19:29] LABS: Strep A Rapid Negative (Negative)
--- NOTE | 2025-04-20 19:51 | EDNOTE_ITS ---
ED Arrhythmia Palp. RME/HPI General Chief Complaint: Arrhythmia/Palpitations Stated Complaint: HIGH HEART RATE X 2 HOURS Time Seen by Provider: 04/20/25 17:03 Arrival date/time: 04/20/25 16:59 This is a case of 39-year-old male with history of palpitation where he is regularly seeing fagot maker and heart monitor angiogram and stress test were all normal patient was supine working in [employer] and started to have palpitation patient also complaining of sore throat denies any other symptoms denies any chest pain or shortness of breath denies and other respiratory symptoms Related Data Home Medications ?Medication ?Instructions ?Recorded ?Confirmed lisinopril 10 mg tablet 10 mg PO DAILY High blood pr essure 12/03/24 12/04/24 diazepam 2 mg tablet 2 mg PO BID 12/04/24 5 Held on 12/04/24. Instructions: Resume on 12/05/24. dicyclomine 10 mg capsule 10 mg PO BID PRN abdominal p ain 12/04/24 12/04/24 loratadine 10 mg tablet (Allergy 10 mg PO QDAY 5 12/04/24 Relief (loratadine)) Allergies Allergy/AdvReac Type Severity Reaction Status Date / Time Penicillins Allergy Severe Redness of Verified 04/20/25 17:02 Skin Course Orders Category Date Time Status Bedside COVID-19 Antigen Test NOW Care 04/20/25 17:22 Active Bedside Influenza A&B Antigen Test NOW Care 04/20/25 17:23 Completed EKG (ED ONLY) *Do not use* NOW Care 04/20/25 17:03 Completed EKG (ED ONLY) *Do not use* NOW Care 04/20/25 17:23 Completed EKG (ED Only) Stat Exams 04/20/25 17:03 Draft EKG (ED Only) Stat Exams 04/20/25 17:22 Ordered CBC Stat Lab 04/20/25 17:31 Completed CMP [Comprehensive Metabolic Panel] Stat Lab 04/20/25 17:31 Completed Strep A Rapid Stat Lab 04/20/25 19:16 Completed TSH [Thyroid Stimulating Hormone] Stat Lab 04/20/25 17:31 Completed Troponin I Stat Lab 04/20/25 17:31 Completed Vital Signs Vital signs: Vital Signs Temperature 99.5 F 04/20/25 17:17 Pulse Rate 98 04/20/25 17:17 Respiratory Rate 18 04/20/25 17:17 Blood Pressure 116/74 04/20/25 17:17 Pulse Oximetry (%) 96 04/20/25 17:17 Oxygen Delivery Method Room Air 04/20/25 17:17 Discharge Plan Prescriptions/Referrals Prescriptions/Med Rec: No Action lisinopril 10 mg tablet 10 mg PO DAILY diazepam 2 mg tablet 2 mg PO BID Patient Comments: TAKE 1 TABLET BY MOUTH TWICE DAILY NEEDED dicyclomine 10 mg capsule 10 mg PO BID PRN (Reason: abdominal pain) Patient Comments: TAKE 1 CAPSULE BY MOUTH TWICE DAILY NEEDED loratadine [Allergy Relief (loratadine)] 10 mg tablet 10 mg PO QDAY Referrals: No Primary/Family,Physician [Primary Care Provider] - In 1 week Patient/Caregiver Discharge Instructions Print Language: Jordanian
== END 2025-04-20 20:05 | disposition home or self-care (01) ==
PROVIDERS: Nurse Practitioner Family; Emergency Provider Emergency Medicine
DX: R00.2 Palpitations (principal); I49.9 Cardiac arrhythmia, unspecified; Z79.899 Other long term (current) drug therapy
CPT/HCPCS: 36415; 80053; 84443; 84484; 85025; 87400; 87651; 87811; 93005; 99284

== ENCOUNTER 2025-06-21 13:10 | Emergency (ER) | payer MEDICAID, SELFPAY ==
[2025-06-21 13:11] VITALS: BMI 25.1
[2025-06-21 13:19] VITALS: BP 134/86; PULSE 76; RESP 19; TEMP 36.7; O2SAT 100
--- NOTE | 2025-06-21 13:27 | EKG_ITS ---
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
--- NOTE | 2025-06-21 13:29 | PD.EDRME ---
Rapid Medical Screening Exam RME Arrival date/time: 06/21/25 13:10 39-year-old male with a history of hypertension presents to the emergency room with a chief complaint of a left-sided headache and palpitation x 1 day I have greeted and performed a focused initial assessment of this patient. A comprehensive ED assessment and evaluation of the patient, analysis of all test results, and completion of the medical decision making process will be conducted by additional ED providers. Chief Complaint: Headache Time Seen by Provider: 06/21/25 13:15 Vital signs: Vital Signs Temperature 98.1 F 06/21/25 13:19 Pulse Rate 76 06/21/25 13:19 Respiratory Rate 19 06/21/25 13:19 Blood Pressure 134/86 H 06/21/25 13:19 Pulse Oximetry (%) 100 06/21/25 13:19 Oxygen Delivery Method Room Air 06/21/25 13:19 Vital signs reviewed by provider: Yes Exam: Clear bilateral lung sounds Strong and regular rhythm S1 and S2 noted GCS of 15 alert and oriented x 3 no focal deficits Clinical Impression: Migraine/headache/tension headache
[2025-06-21] MEDS: METOCLOPRAMIDE 5 MG TABLET 10 MG PO (13:37)
[2025-06-21] MEDS: KETOROLAC INJ 60 MG/2 ML VIAL 30 MG IM (13:38)
[2025-06-21 14:08] LABS: Basophils # (Auto) 0.1 Thou/mm3 (0.0-0.2); Basophils % (Auto) 1 % (0-2.5); Eosinophils # (Auto) 0.1 Thou/mm3 (0.0-0.5); Eosinophils % (Auto) 1 % (0-10); Hematocrit 42.8 % (41.0-53.0); Hemoglobin 14.7 g/dL (13.5-16.0); Immature Granulocytes Auto 0.03 Thou/mm3 (0.00-0.00); Lymphocytes # (Auto) 1.5 Thou/mm3 (1.0-4.8); Lymphocytes % (Auto) 24 % (10-50); Mean Corpuscular HGB Conc 34.3 g/dl (31.0-37.0); Mean Corpuscular Hemoglobin 29.8 pg (25.0-35.0); Mean Corpuscular Volume 87 fL (80-100); Monocytes # (Auto) 0.4 Thou/mm3 (0.0-0.8); Monocytes % (Auto) 6 % (0-12); Neutrophils # (Auto) 4.4 Thou/mm3 (1.8-7.7); Neutrophils % (Auto) 68 % (37-80); Nucleated Red Blood Cell # 0.00 Thou/mm3 (0.00-0.00); Nucleated Red Blood Cell % 0 /100 WBC (0); Platelet Count 195 Thou/mm3 (140-440); RDW Standard Deviation 39.7 fL (35.1-43.9); Red Blood Count 4.94 Miln/mm3 (4.50-5.90); White Blood Count 6.4 Thou/mm3 (3.8-10.6)
[2025-06-21 14:29] LABS: INR 1.0 (0.9-1.3); Partial Thromboplastin Time 27.4 Seconds (22.0-36.0); Prothrombin Time 10.9 Seconds (9.0-12.2)
[2025-06-21 14:31] LABS: B-Type Natriuretic Peptide 23 pg/mL (0-100)
[2025-06-21 14:32] LABS: Alanine Aminotransferase 17 U/L (10-49); Albumin, Serum 5.0 gm/dL (3.5-5.0); Albumin/Globulin Ratio 2.6 (1.2-2.2); Alkaline Phosphatase 58 U/L (46-116); Anion Gap 8 (7-16); Aspartate Amino Transferase 17 U/L (0-34); BUN/Creatinine Ratio 12 Ratio (12-20); Bilirubin,Total 0.5 mg/dL (0.3-1.2); Blood Urea Nitrogen 13 mg/dL (9-23); Calcium 9.9 mg/dL (8.3-10.6); Calcium (Corrected) 9.9 mg/dL (8.5-10.1); Carbon Dioxide 28.3 mMol/L (20.0-31.0); Chloride 106 mMol/L (98-107); Creatinine (Component) 1.1 mg/dL (0.6-1.3); Estimated Creatinine Clearance 91.3 mL/min (>60); Globulin 1.9 gm/dL (2.3-3.5); Glucose 108 mg/dL (74-106); Magnesium 2.1 mg/dL (1.6-2.6); Osmolality,Calculated 284 (275-295); Potassium 4.4 mMol/L (3.4-5.1); Sodium 142 mMol/L (136-145); Total Protein 6.9 gm/dL (5.7-8.2); Troponin I < 0.002 ng/mL (0.0-0.045); eGFR > 60 See Note
[2025-06-21 14:42] LABS: Collection Type, Urine Clean Catch; Squamous Epithelial Cell,Urine 0 /hpf (0-5)
[2025-06-21 15:00] LABS: Bilirubin,Urine Negative (Negative); Blood,Urine Negative (Negative); Clarity,Urine Clear (Clear/Hazy); Color,Urine Colorless (Lt Yel-Yel); Culture Indicated,Urine Not Indicated; Glucose, Urine Negative (Negative); Ketones,Urine Negative (Negative); Leukocyte Esterase,Urine Negative (Negative); Nitrite,Urine Negative (Negative); PH,Urine 7.0 (5.0-7.0); Protein,Urine Negative (Neg - Trace); RBC,Urine < 1 /hpf (0-3); Specific Gravity,Urine 1.011 (1.001-1.035); Urobilinogen,Urine Negative mg/dL (0.0-1.0); WBC,Urine < 1 /hpf (0-5)
[2025-06-21 15:12] LABS: Amphetamine/Methamp Scrn,U Negative (Negative); Barbiturate Screen,Urine Negative (Negative); Benzodiazepines Screen,Urine Negative (Negative); Benzoylecgonine Screen, Ur Negative (Negative); Fentanyl Screen,Urine Negative (Negative); Opiate Screen,Urine Negative (Negative); THC Screen,Urine Negative (Negative)
--- NOTE | 2025-06-21 15:30 | EDNOTE_ITS ---
<Statement entered by Anne Honeycutt MD - 06/21/25 16:26> As co-signing physician, I was present and available for consult prn. I concur with the plan and care as documented by the midlevel provider. ED Headache RME/HPI General Chief Complaint: Headache Stated Complaint: STABBING PAIN TO L HEAD XLAST NIGHT Time Seen by Provider: 06/21/25 13:15 Source: patient Arrival date/time: 06/21/25 13:10 39-year-old male with a history of hypertension presents to the emergency room with a chief complaint of a left-sided headache and palpitation x 1 day Mode of arrival: ambulatory Limitations: no limitations RME / HPI RME / HPI Narrative: 06/21/25 13:10 39-year-old male with a history of hypertension presents to the emergency room with a chief complaint of a left-sided headache and palpitation x 1 day I have greeted and performed a focused initial assessment of this patient. A comprehensive ED assessment and evaluation of the patient, analysis of all test results, and completion of the medical decision making process will be conducted by additional ED providers. Exam: Clear bilateral lung sounds Strong and regular rhythm S1 and S2 noted GCS of 15 alert and oriented x 3 no focal deficits Impression: Migraine/headache/tension headache Related Data Home Medications ?Medication ?Instructions ?Recorded ?Confirmed lisinopril 10 mg tablet 10 mg PO DAILY High blood pr essure 12/03/24 12/04/24 diazepam 2 mg tablet 2 mg PO BID 12/04/24 5 Held on 12/04/24. Instructions: Resume on 12/05/24. dicyclomine 10 mg capsule 10 mg PO BID PRN abdominal p ain 12/04/24 12/04/24 loratadine 10 mg tablet (Allergy 10 mg PO QDAY 5 12/04/24 Relief (loratadine)) Previous Rx's ?Medication ?Instructions ?Recorded clarithromycin 500 mg tablet 500 mg PO BID #20 tabs lidocaine HCl 2 % mucosal solution 10 ml PO Q4HR PRN s ore throat #100 04/20/25 (Lidocaine Viscous) mL acetaminophen-caffeine 500 mg-65 1 tab PO Q8H PRN pain #30 tabs 06/21/25 mg tablet (Excedrin Tension Headache) Allergies Allergy/AdvReac Type Severity Reaction Status Date / Time Penicillins Allergy Severe Redness of Verified 06/21/25 13:16 Skin Review of Systems Review of Systems Systems Reviewed: All systems reviewed, normal except as documented Constitutional Constitutional: Reports system reviewed and no additional complaints, except as documented, Denies fatigue, Denies fever(s), Reports headache(s) and Reports weakness Eyes Eyes: Reports system reviewed and no additional complaints, except as documented, Denies blurry vision and Denies change in vision ENT Ears, Nose, Mouth, and Throat: Reports system reviewed and no additional complaints, except as documented, Denies otalgia, Reports headache(s), Denies nasal congestion, Denies throat swelling and Denies vertigo Cardiovascular Cardiovascular: Reports system reviewed and no additional complaints, except as documented, Denies chest pain, Denies dyspnea and Denies dyspnea on exertion Respiratory Respiratory: Reports system reviewed and no additional complaints, except as documented, Denies chest congestion, Denies cough, Denies dyspnea, Denies dyspnea on exertion and Denies wheezing Gastrointestinal Gastrointestinal: Reports system reviewed and no additional complaints, except as documented, Denies abdominal pain, Denies cramping, Denies nausea and Denies vomiting Genitourinary Genitourinary: Reports system reviewed and no additional complaints, except as documented, Denies dysuria and Denies hematuria Musculoskeletal Musculoskeletal: Reports system reviewed and no additional complaints, except as documented and Denies back pain Integumentary/Breasts Skin/Breast: Reports system reviewed and no additional complaints, except as documented and Denies wounds Neurologic Neurologic: Reports system reviewed and no additional complaints, except as documented, Denies confusion, Reports headache(s), Denies lack of coordination, Denies vertigo and Reports weakness Psychiatric Psychiatric: Reports system reviewed and no additional complaints, except as documented, Denies anxiety, Denies confusion, Denies depression, Denies paranoia, Denies suicidal ideation and Denies tactile hallucinations Endocrine Endocrine: Reports system reviewed and no additional complaints, except as documented and Denies fatigue Hematologic/Lymphatic Hematologic/Lymphatic: Reports system reviewed and no additional complaints, except as documented and Denies lymphadenopathy Allergic/Immunologic Allergic/Immunologic: Reports system reviewed and no additional complaints, except as documented, Denies throat swelling, Denies urticaria and Denies wheezing Past Medical History Past Medical History NEUROLOGIC: Negative Neurological Disorders or Seizures CARDIAC: Positive Cardiac Disorders (tachycardia); Negative Congestive Heart Failure, Hypertension or Hypotension RESPIRATORY: Negative Chronic Obstructive Pulmonary Disease (COPD) or Asthma GASTROINTESTINAL: Positive Gastrointestinal Disorders (anal fissure), Gastrointestinal Bleed and Hemorrhoids GENITOURINARY: Negative Genitourinary Disorders or Renal Disease MUSCULOSKELETAL: Positive Musculoskeletal Disorders and Arthritis ENDOCRINE: Negative Endocrine Disorders, Diabetes Mellitus Type 1 or Diabetes Mellitus Type 2 HEMATOLOGIC: Negative Blood Disorders or Sickle Cell Disease PSYCHO/SOCIAL: Positive Anxiety OTHER HISTORY: Positive Chicken Pox; Negative Hospitalization, Autoimmune Disease, Falls, Blood Transfusions, Blood Transfusion Reaction, Anesthesia Reactions, MRSA or Cancer Family History FAMILY HISTORY: Positive Family Cardiac Disorders, Family Gastrointestinal Problems and Family Cancer; Negative Family Psychiatric Problems or Family Anesthesia Reaction Surgical History SURGICAL: Negative Endocrine Surgery, Ear Surgery, Abdominal Surgery, Nephrectomy, Joint Replacement or Neurologic Surgery Social History SMOKING STATUS: Never smoker SECOND HAND EXPOSURE: No ED Exam General Limitations: Present no limitations General appearance: Present alert and in no apparent distress Head Head exam: Present atraumatic, normocephalic and normal inspection Eye Eye exam: Present normal appearance, PERRL and EOMI ENT ENT exam: Present normal exam, normal oropharynx and mucous membranes moist Neck Neck exam: Present normal inspection, full ROM and trachea midline Chest Chest inspection: Present normal inspection and symmetric chest wall rise Respiratory Respiratory exam: Present normal lung sounds bilaterally Cardiovascular Cardiovascular exam: Present regular rate, normal rhythm, normal heart sounds, +S1 and +S2; Absent bradycardia, tachycardia or irregular rhythm Abdominal Exam Abdominal exam: Present soft and normal bowel sounds; Absent distention, tenderness or guarding Extremities Exam Extremities exam: Present normal inspection and full ROM Back Exam Back exam: Present normal inspection and full ROM Neurological Exam Neurological exam: Present alert, oriented X3, CN II-XII intact, normal gait and reflexes normal Expanded Neurological Exam Patient oriented to: Present person, place and time Speech: Present fluid speech Cerebellar function: Present normal gait Motor strength - LUE: 5/5 Motor strength - RUE: 5/5 Motor strength - LLE: 5/5 Motor strength - RLE: 5/5 Coma scale eye opening: spontaneous Coma scale motor response: obeys commands Coma scale verbal response: oriented Coma scale total: 15 Psychiatric Psychiatric exam: Present normal affect and normal mood Skin Skin exam: Present warm, dry, intact and normal color Course Quality Measures none Orders Category Date Time Status EKG (ED ONLY) *Do not use* NOW Care 06/21/25 13:27 Completed EKG (ED Only) Stat Exams 06/21/25 13:27 Draft B-Type Natriuretic Peptide Stat Lab 06/21/25 13:47 Completed CBC Stat Lab 06/21/25 13:47 Completed Comprehensive Metabolic Panel Stat Lab 06/21/25 13:47 Completed Drug Screen,Urine Stat Lab 06/21/25 14:00 Completed Magnesium Stat Lab 06/21/25 13:47 Completed Partial Thromboplastin Time Stat Lab 06/21/25 13:47 Completed Prothrombin Time with INR Stat Lab 06/21/25 13:47 Completed Troponin I Stat Lab 06/21/25 13:47 Completed Urinalysis, C/S if Indicated Stat Lab 06/21/25 14:00 Completed DiphenhydrAMINE [Benadryl] Med 06/21/25 13:27 Discontinued 25 mg PO X1 ONE Ketorolac Inj [Toradol Inj] Med 06/21/25 13:27 Discontinued 30 mg IM X1 ONE Metoclopramide [Reglan] Med 06/21/25 13:27 Discontinued 10 mg PO X1 ONE Vital Signs Vital signs: Vital Signs Temperature 98.1 F 06/21/25 13:19 Pulse Rate 76 06/21/25 13:19 Respiratory Rate 19 06/21/25 13:19 Blood Pressure 134/86 H 06/21/25 13:19 Pulse Oximetry (%) 100 06/21/25 13:19 Oxygen Delivery Method Room Air 06/21/25 13:19 Headache MDM Narrative MDM Narrative:: 39-year-old male with a history of hypertension presents to the emergency room with a chief complaint of a left-sided headache and palpitation x 1 day Patient is hemodynamically stable and in no apparent distress Physical examination shows a patient that is a GCS 15 pupils are PERRLA EOMs are intact there is no focal neurological deficits. The patient has a normal steady gait. Patient was given medication and states his symptoms significantly improved. The patient has a strong and regular rhythm S1 and S2 noted EKG shows normal sinus rhythm with no ST deviation CBC CMP were all within normal limits Patient was discharged and educated to follow-up with primary care provider in the next 24 to 48 hours and return to the emergency room for any evidence of worsening signs or symptoms Patient data External records reviewed:: [facility] previous records Clinical information provided by:: patient Social determinants that could affect healthcare access:: none Patient has the following chronic illnesses:: No chronic illness How is presenting disease/condition affected by chronic disease/condition?: no chronic disease Evaluation data The following diagnostics were reviewed and interpreted by me:: lab results and radiology exam(s) Lab and/or radiology exams considered but not ordered:: Labs and radiology exams considered and ordered Interpretation Summary: N/A Medications / Prescriptions Medications or Prescriptions considered but not ordered:: Medication given Medication administrations:: Medication Administration History Discontinued Medications Diphenhydramine HCl (Diphenhydramine 25 Mg Capsule) 25 mg PO X1 ONE Stop: 06/21/25 13:28 Last Admin: 06/21/25 13:37 Dose: 25 mg Documented By: Ketorolac Tromethamine (Ketorolac Inj 60 Mg/2 Ml Vial) 30 mg IM X1 ONE Stop: 06/21/25 13:28 Last Admin: 06/21/25 13:38 Dose: 30 mg Documented By: Metoclopramide HCl (Metoclopramide 5 Mg Tablet) 10 mg PO X1 ONE Stop: 06/21/25 13:28 Last Admin: 06/21/25 13:37 Dose: 10 mg Documented By: Medication given Consultations Consultation(s) initiated? (list below): No Diagnosis Differential diagnosis headache: migraine, tension headache and headache Most likely diagnosis given after review of the tests above:: Headache Admission Indicated Admission indicated?: not indicated Admission Request Was there a request for admission?: No Disposition Plan Disposition Plan: Discharge Discharge Attestation Discharge Attestation: The patient and all family members were given an opportunity to ask questions and understood the discharge instructions. Discharge instructions specifically effects, indications for sooner follow up or return to the emergency department, and the expected course of current diagnosis. Patient condition: Stable Discharge Plan Plan Patient Disposition: HOME (Self Care) Discharge Disposition comment: Stable Prescriptions/Referrals Prescriptions/Med Rec: New Excedrin Tension Headache 500-65 mg tablet 1 tab PO Q8H PRN (Reason: pain) Qty: 30 0RF No Action clarithromycin 500 mg tablet 500 mg PO BID Qty: 20 0RF lidocaine HCl [Lidocaine Viscous] 2 % solution 10 ml PO Q4HR PRN (Reason: sore throat) Qty: 100 0RF lisinopril 10 mg tablet 10 mg PO DAILY diazepam 2 mg tablet 2 mg PO BID Patient Comments: TAKE 1 TABLET BY MOUTH TWICE DAILY NEEDED dicyclomine 10 mg capsule 10 mg PO BID PRN (Reason: abdominal pain) Patient Comments: TAKE 1 CAPSULE BY MOUTH TWICE DAILY NEEDED loratadine [Allergy Relief (loratadine)] 10 mg tablet 10 mg PO QDAY Referrals: Tricia Laird, CORPORATE SALES TRAINER [Primary Care Provider] - In 1 week Problem List Clinical Impression: Headache Patient/Caregiver Discharge Instructions Education Materials: Self-Care for Headaches Additional Instructions: Please follow-up with your primary care provider in the next 24 to 48 hours For any evidence of worsening signs or symptoms return to the emergency room immediately Print Language: Tunisian Stand Alone Forms: Nadeen Award Info., Work/School Release, Patient Portal Info Letter
== END 2025-06-21 15:58 | disposition home or self-care (01) ==
PROVIDERS: Nurse Practitioner Family; Emergency Provider Emergency Medicine; PCP Nurse Practitioner Family
DX: G44.209 Tension-type headache, unspecified, not intractable (principal); G43.909 Migraine, unspecified, not intractable, without status migrainosus; I10 Essential (primary) hypertension
CPT/HCPCS: 36415; 80053; 80307; 81001; 83735; 83880; 84484; 85025; 85610; 85730; 93005; 96372; 99283; J1885; A9270

== ENCOUNTER 2025-06-24 14:09 | Emergency (ER) | payer MEDICAID, SELFPAY ==
[2025-06-24 14:15] VITALS: BP 128/84; PULSE 77; RESP 20; TEMP 36.8; O2SAT 99; BMI 24.8
--- NOTE | 2025-06-24 14:15 | EKG_ITS ---
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
--- NOTE | 2025-06-24 14:26 | PD.EDRME ---
Rapid Medical Screening Exam RME Arrival date/time: 06/24/25 14:09 Chief Complaint: Headache Time Seen by Provider: 06/24/25 14:26 Vital signs: Vital Signs Temperature 98.2 F 06/24/25 14:15 Pulse Rate 77 06/24/25 14:15 Respiratory Rate 20 06/24/25 14:15 Blood Pressure 128/84 06/24/25 14:15 Pulse Oximetry (%) 99 06/24/25 14:15 Oxygen Delivery Method Room Air 06/24/25 14:15 Pulse ox is 99% room air Vital signs reviewed by provider: Yes RME Narrative: 39-year-old male presents to the emergency department with a complaint of chest pain that began a couple of days ago. Patient describes his chest pain as mild and radiates up to his left shoulder and down his left upper extremity. Patient shows concern for his blood pressure as being high and that he is taking lisinopril for his blood pressure which he says usually controls it. Also complains of a headache. Exam: Patient is no apparent cardiac or respiratory distress. The heart is regular rhythm and rate and there is no apparent murmurs. Carotid pulses are 2+ and there is no bruits present. The lungs are clear to auscultation. Radial pulse present and 2+. Good capillary refill. Note that the hands are somewhat cold upon palpation. He does not have any apparent lower extremity edema. EOMs are intact. Clinical Impression: Chest pain
--- NOTE | 2025-06-24 14:30 | XR_ITS ---
CLINICAL INDICATION: Chest Pain TECHNIQUE: XR chest 2V COMPARISON: 11/11/2024 FINDINGS: The cardiomediastinal silhouette is within normal limits. No airspace opacities suggestive of pneumonia. No mass detected. No pleural effusion or pneumothorax. No acute osseous abnormality detected. Very mild thoracic dextroscoliosis is identified. IMPRESSION: No radiographic evidence for acute cardiopulmonary abnormality. No significant interval change since the comparison study. - This report was generated utilizing speech recognition software. -
[2025-06-24 15:18] LABS: Collection Type, Urine Clean Catch; RBC,Urine 0 /hpf (0-3); Squamous Epithelial Cell,Urine 0 /hpf (0-5)
[2025-06-24 15:20] LABS: Basophils # (Auto) 0.1 Thou/mm3 (0.0-0.2); Basophils % (Auto) 1 % (0-2.5); Eosinophils # (Auto) 0.2 Thou/mm3 (0.0-0.5); Eosinophils % (Auto) 2 % (0-10); Hematocrit 44.3 % (41.0-53.0); Hemoglobin 15.0 g/dL (13.5-16.0); Immature Granulocytes Auto 0.02 Thou/mm3 (0.00-0.00); Lymphocytes # (Auto) 1.8 Thou/mm3 (1.0-4.8); Lymphocytes % (Auto) 26 % (10-50); Mean Corpuscular HGB Conc 33.9 g/dl (31.0-37.0); Mean Corpuscular Hemoglobin 29.4 pg (25.0-35.0); Mean Corpuscular Volume 87 fL (80-100); Monocytes # (Auto) 0.4 Thou/mm3 (0.0-0.8); Monocytes % (Auto) 5 % (0-12); Neutrophils # (Auto) 4.6 Thou/mm3 (1.8-7.7); Neutrophils % (Auto) 66 % (37-80); Nucleated Red Blood Cell # 0.00 Thou/mm3 (0.00-0.00); Nucleated Red Blood Cell % 0 /100 WBC (0); Platelet Count 250 Thou/mm3 (140-440); RDW Standard Deviation 39.6 fL (35.1-43.9); Red Blood Count 5.10 Miln/mm3 (4.50-5.90); White Blood Count 7.0 Thou/mm3 (3.8-10.6)
[2025-06-24 15:26] LABS: Bilirubin,Urine Negative (Negative); Blood,Urine Negative (Negative); Clarity,Urine Clear (Clear/Hazy); Color,Urine Colorless (Lt Yel-Yel); Culture Indicated,Urine Not Indicated; Glucose, Urine Negative (Negative); Ketones,Urine Negative (Negative); Leukocyte Esterase,Urine Negative (Negative); Nitrite,Urine Negative (Negative); PH,Urine 6.0 (5.0-7.0); Protein,Urine Negative (Neg - Trace); Specific Gravity,Urine 1.007 (1.001-1.035); Urobilinogen,Urine Negative mg/dL (0.0-1.0); WBC,Urine < 1 /hpf (0-5)
[2025-06-24 15:30] LABS: Amphetamine/Methamp Scrn,U Negative (Negative); Barbiturate Screen,Urine Negative (Negative); Benzodiazepines Screen,Urine Negative (Negative); Benzoylecgonine Screen, Ur Negative (Negative); Fentanyl Screen,Urine Negative (Negative); Opiate Screen,Urine Negative (Negative); THC Screen,Urine Negative (Negative)
[2025-06-24 15:35] LABS: INR 1.0 (0.9-1.3); Partial Thromboplastin Time 27.3 Seconds (22.0-36.0); Prothrombin Time 10.6 Seconds (9.0-12.2)
[2025-06-24 15:38] LABS: B-Type Natriuretic Peptide < 20 pg/mL (0-100)
[2025-06-24 15:40] LABS: Alanine Aminotransferase 20 U/L (10-49); Albumin, Serum 5.2 gm/dL (3.5-5.0); Albumin/Globulin Ratio 2.6 (1.2-2.2); Alkaline Phosphatase 59 U/L (46-116); Anion Gap 11 (7-16); Aspartate Amino Transferase 19 U/L (0-34); BUN/Creatinine Ratio 8 Ratio (12-20); Bilirubin,Total 0.6 mg/dL (0.3-1.2); Blood Urea Nitrogen 9 mg/dL (9-23); Calcium 10.0 mg/dL (8.3-10.6); Calcium (Corrected) 10.0 mg/dL (8.5-10.1); Carbon Dioxide 29.2 mMol/L (20.0-31.0); Chloride 102 mMol/L (98-107); Creatinine (Component) 1.2 mg/dL (0.6-1.3); Estimated Creatinine Clearance 83.6 mL/min (>60); Globulin 2.0 gm/dL (2.3-3.5); Glucose 100 mg/dL (74-106); LDH (Lactate Dehydrogenase) 179 U/L (120-246); Magnesium 2.1 mg/dL (1.6-2.6); Osmolality,Calculated 281 (275-295); Potassium 4.2 mMol/L (3.4-5.1); Sodium 142 mMol/L (136-145); Total Protein 7.2 gm/dL (5.7-8.2); Troponin I < 0.002 ng/mL (0.0-0.045); eGFR > 60 See Note
--- NOTE | 2025-06-24 16:05 | EDNOTE_ITS ---
<Statement entered by Anne Honeycutt MD - 06/24/25 17:52> As co-signing physician, I was present and available for consult prn. I concur with the plan and care as documented by the midlevel provider. ED Headache RME/HPI General Chief Complaint: Headache Stated Complaint: HEADACHE, HIGH BP, HIGH PULSE Time Seen by Provider: 06/24/25 14:26 Source: patient Arrival date/time: 06/24/25 14:09 Mode of arrival: ambulatory Limitations: no limitations RME / HPI Complaint: headache Onset (ago): day(s) Onset description: sudden and gradual Severity: moderate Severity scale (1-10): 5 Relieving factors: nothing Exacerbating factors: none Context: occurred at rest and known CO exposure Associated symptoms: none Other symptoms: chest pain Treatments prior to arrival: none FATOUE / HPI Narrative: 39-year-old male presents to the emergency department with a complaint of chest pain that began a couple of days ago. Patient describes his chest pain as mild and radiates up to his left shoulder and down his left upper extremity. Patient shows concern for his blood pressure as being high and that he is taking lisinopril for his blood pressure which he says usually controls it. Also complains of a headache. Exam: Patient is no apparent cardiac or respiratory distress. The heart is regular rhythm and rate and there is no apparent murmurs. Carotid pulses are 2+ and there is no bruits present. The lungs are clear to auscultation. Radial pulse present and 2+. Good capillary refill. Note that the hands are somewhat cold upon palpation. He does not have any apparent lower extremity edema. EOMs are intact. Impression: Chest pain Related Data Home Medications ?Medication ?Instructions ?Recorded ?Confirmed lisinopril 10 mg tablet 10 mg PO DAILY High blood pr essure 12/03/24 12/04/24 diazepam 2 mg tablet 2 mg PO BID 12/04/24 5 Held on 12/04/24. Instructions: Resume on 12/05/24. dicyclomine 10 mg capsule 10 mg PO BID PRN abdominal p ain 12/04/24 12/04/24 loratadine 10 mg tablet (Allergy 10 mg PO QDAY 5 12/04/24 Relief (loratadine)) Previous Rx's ?Medication ?Instructions ?Recorded clarithromycin 500 mg tablet 500 mg PO BID #20 tabs lidocaine HCl 2 % mucosal solution 10 ml PO Q4HR PRN s ore throat #100 04/20/25 (Lidocaine Viscous) mL acetaminophen-caffeine 500 mg-65 1 tab PO Q8H PRN pain #30 tabs 06/21/25 mg tablet (Excedrin Tension Headache) Allergies Allergy/AdvReac Type Severity Reaction Status Date / Time Penicillins Allergy Severe Redness of Verified 06/24/25 14:13 Skin Review of Systems Review of Systems Systems Reviewed: All systems reviewed, normal except as documented Constitutional Constitutional: Reports system reviewed and no additional complaints, except as documented Eyes Eyes: Reports system reviewed and no additional complaints, except as documented, Denies dry eyes, Denies exophthalmos and Reports floaters Cardiovascular Cardiovascular: Denies chest pain with activity and Denies claudication Past Medical History Past Medical History CARDIAC: Positive Hypertension ED Exam Narrative Physical exam: Patient is able to touch his index finger to his nose, patient is able to tap his heels to his shins, patient's EOMs are intact and he has PERRL. The point of maximal tenderness at the chest is left of the heart that is nontender to palpation. Note the patient has regular rhythm and rate, he is able to speak to me in full word sentences. His skin is warm and dry. Patient is in no apparent cardiac or and respiratory distress. General Limitations: Present no limitations General appearance: Present alert and in no apparent distress Head Head exam: Present atraumatic, normocephalic and normal inspection Eye Eye exam: Present normal appearance, PERRL and EOMI ENT ENT exam: Present normal exam and normal oropharynx Neck Neck exam: Present normal inspection and full ROM Chest Chest inspection: Present normal inspection and symmetric chest wall rise Respiratory Respiratory exam: Present normal lung sounds bilaterally Cardiovascular Cardiovascular exam: Present regular rate and normal rhythm Abdominal Exam Abdominal exam: Present soft Rectal Exam Rectal exam: Present deferred Extremities Exam Extremities exam: Present normal inspection Back Exam Back exam: Present normal inspection and full ROM Neurological Exam Neurological exam: Present alert and oriented X3 Psychiatric Psychiatric exam: Present normal affect and normal mood Skin Skin exam: Present warm, intact and normal color Course Course Course Narrative: Patient will have a chest pain workup Quality Measures none Orders Category Date Time Status EKG (ED ONLY) *Do not use* NOW Care 06/24/25 14:15 Completed EKG (ED Only) Stat Exams 06/24/25 14:15 Draft XR chest 2V Stat Exams 06/24/25 14:30 Completed B-Type Natriuretic Peptide Stat Lab 06/24/25 14:41 Completed CBC Stat Lab 06/24/25 14:41 Completed Comprehensive Metabolic Panel Stat Lab 06/24/25 14:41 Completed Drug Screen,Urine Stat Lab 06/24/25 15:00 Completed LDH (Lactate Dehydrogenase) Stat Lab 06/24/25 14:41 Completed Magnesium Stat Lab 06/24/25 14:41 Completed Partial Thromboplastin Time Stat Lab 06/24/25 14:41 Completed Prothrombin Time with INR Stat Lab 06/24/25 14:41 Completed Troponin I Stat Lab 06/24/25 14:41 Completed Urinalysis, C/S if Indicated Stat Lab 06/24/25 15:00 Completed Done Vital Signs Vital signs: Vital Signs Temperature 98.2 F 06/24/25 14:15 Pulse Rate 77 06/24/25 14:15 Respiratory Rate 20 06/24/25 14:15 Blood Pressure 128/84 06/24/25 14:15 Pulse Oximetry (%) 99 06/24/25 14:15 Oxygen Delivery Method Room Air 06/24/25 14:15 Pulse ox is 99% room air Headache MDM Narrative MDM Narrative:: Patient will be discharged in no apparent distress. Patient is to follow-up with the primary care physician within 1 week. Patient data External records reviewed:: Other (specify) Clinical information provided by:: patient Social determinants that could affect healthcare access:: none Patient has the following chronic illnesses:: HTN How is presenting disease/condition affected by chronic disease/condition?: no chronic disease Evaluation data The following diagnostics were reviewed and interpreted by me:: lab results Lab and/or radiology exams considered but not ordered:: NA Interpretation Summary: NA Medications / Prescriptions Medications or Prescriptions considered but not ordered:: NA Medication administrations:: NA Consultations Consultation(s) initiated? (list below): No Consultation #1 (Physician, Specialty, Details): NA Diagnosis Differential diagnosis headache: tension headache, subarachnoid hemorrhage, headache and sinusitis Most likely diagnosis given after review of the tests above:: HTN, chest pain Admission Indicated Admission indicated?: not indicated Explain why admission is indicated or not indicated:: NA Admission Request Was there a request for admission?: No Disposition Plan Disposition Plan: Discharge Discharge Attestation Discharge Attestation: The patient and all family members were given an opportunity to ask questions and understood the discharge instructions. Discharge instructions specifically effects, indications for sooner follow up or return to the emergency department, and the expected course of current diagnosis. Patient condition: Stable Discharge Plan Plan Patient Disposition: HOME (Self Care) Discharge Disposition comment: Discharge no apparent distress Patient condition on transfer: Stable Prescriptions/Referrals Prescriptions/Med Rec: No Action clarithromycin 500 mg tablet 500 mg PO BID Qty: 20 0RF lidocaine HCl [Lidocaine Viscous] 2 % solution 10 ml PO Q4HR PRN (Reason: sore throat) Qty: 100 0RF Excedrin Tension Headache 500-65 mg tablet 1 tab PO Q8H PRN (Reason: pain) Qty: 30 0RF lisinopril 10 mg tablet 10 mg PO DAILY diazepam 2 mg tablet 2 mg PO BID Patient Comments: TAKE 1 TABLET BY MOUTH TWICE DAILY NEEDED dicyclomine 10 mg capsule 10 mg PO BID PRN (Reason: abdominal pain) Patient Comments: TAKE 1 CAPSULE BY MOUTH TWICE DAILY NEEDED loratadine [Allergy Relief (loratadine)] 10 mg tablet 10 mg PO QDAY Referrals: Tricia Laird, TRAIN OPERATIONS SUPERVISOR [Primary Care Provider] - In 1 week Problem List Clinical Impression: Headache, Hypertension, Chest pain Impression comment: Headache, chest pain Patient/Caregiver Discharge Instructions Discharge Activity: activity as tolerated Education Materials: Blood Pressure Check Steps Print Language: Greek Stand Alone Forms: Nadeen Award Info., Patient Portal Info Letter PA/DIE STORAGE CLERK Supervising Physician PA/DIE STORAGE CLERK Supervising Physician: Tangela
== END 2025-06-24 17:15 | disposition home or self-care (01) ==
PROVIDERS: Physician Assistant; Emergency Provider Nurse Practitioner Primary Care; PCP Nurse Practitioner Family
DX: R51.9 Headache, unspecified (principal); I10 Essential (primary) hypertension
CPT/HCPCS: 36415; 71046; 80053; 80307; 81001; 83615; 83735; 83880; 84484; 85025; 85610; 85730; 93005; 99283

== ENCOUNTER 2025-06-26 18:42 | Emergency (ER) | payer MEDICAID, SELFPAY ==
[2025-06-26 18:42] VITALS: BMI 24.8
[2025-06-26 19:10] VITALS: BP 126/87; PULSE 71; RESP 18; TEMP 36.8; O2SAT 99
--- NOTE | 2025-06-26 19:23 | EKG_ITS ---
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
--- NOTE | 2025-06-26 19:24 | PD.EDABDPN ---
ED Abdominal Pain RME/HPI General Chief Complaint: Abdominal Pain Stated complaint: ABD BURNING SINCE LAST NIGHT Time seen by provider: 06/26/25 18:49 Arrival date/time: 06/26/25 18:42 Source: patient, RN notes reviewed and old records reviewed Mode of arrival: ambulatory Limitations: no limitations RME / HPI RME / HPI narrative: 39yom presents to the ED for epigastric pain that initiated last night. Hx gastritis on EGD last year. Patient c/o nausea but no vomiting. No fever, sob, cp, diarrhea or urinary symptoms reported. Patient took Tylenol and Tums at home without relief. Related Data Home Medications ?Medication ?Instructions ?Recorded ?Confirmed lisinopril 10 mg tablet 10 mg PO DAILY High blood pressure 12/03/24 12/04/24 diazepam 2 mg tablet 2 mg PO BID 12/04/24 12/04/24 Held on 12/04/24. Instructions: Resume on 12/05/24. dicyclomine 10 mg capsule 10 mg PO BID PRN abdominal pain 12/04/24 12/04/24 loratadine 10 mg tablet (Allergy 10 mg PO QDAY 12/04/24 12/04/24 Relief (loratadine)) Previous Rx's ?Medication ?Instructions ?Recorded clarithromycin 500 mg tablet 500 mg PO BID #20 tabs 04/20/25 lidocaine HCl 2 % mucosal solution 10 ml PO Q4HR PRN sore throat #100 04/20/25 (Lidocaine Viscous) mL acetaminophen-caffeine 500 mg-65 1 tab PO Q8H PRN pain #30 tabs 06/21/25 mg tablet (Excedrin Tension Headache) acetaminophen 500 mg tablet 1,000 mg (2 x 500 mg) PO Q6H PRN 06/26/25 (Tylenol Extra Strength) pain #30 tabs famotidine 40 mg tablet (Pepcid) 40 mg PO QDAY #30 tabs 06/26/25 ondansetron 4 mg disintegrating 4 mg PO Q6H PRN nausea and 06/26/25 tablet vomiting #10 tabs Allergies Allergy/AdvReac Type Severity Reaction Status Date / Time Penicillins Allergy Severe Redness of Verified 06/26/25 18:44 Skin Review of Systems Review of Systems Systems Reviewed: All systems reviewed, normal except as documented Constitutional Constitutional: Denies fever(s) Cardiovascular Cardiovascular: Denies chest pain and Denies dyspnea Respiratory Respiratory: Denies dyspnea Gastrointestinal Gastrointestinal: Reports abdominal pain, Denies loose stools, Reports nausea and Denies vomiting Genitourinary Genitourinary: Denies flank pain and Denies hematuria Past Medical History Past Medical History CARDIAC: Positive Hypertension GASTROINTESTINAL: Positive Gastrointestinal Disorders (Gastritis) PSYCHO/SOCIAL: Positive Anxiety Surgical History OTHER SURGICAL HX: Denies past surgical history Social History SMOKING STATUS: Never smoker SUBSTANCE USE: does not use ALCOHOL: Never ED Exam General Limitations: Present no limitations General appearance: Present alert and in no apparent distress Head Head exam: Present atraumatic and normocephalic Eye Eye exam: Present normal appearance, PERRL and EOMI ENT ENT exam: Present normal exam and mucous membranes moist Neck Neck exam: Present normal inspection and full ROM Chest Chest inspection: Present normal inspection and symmetric chest wall rise Respiratory Respiratory exam: Present normal lung sounds bilaterally; Absent respiratory distress Cardiovascular Cardiovascular exam: Present regular rate and normal rhythm Abdominal Exam Abdominal exam: Present soft and tenderness (Mild, epigastric); Absent distention, guarding or rebound Extremities Exam Extremities exam: Present normal inspection and full ROM Back Exam Back exam: Present normal inspection Neurological Exam Neurological exam: Present alert and oriented X3 Psychiatric Psychiatric exam: Present anxious (Mild) Skin Skin exam: Present warm, dry, intact and normal color Course Quality Measures none Orders Category Date Time Status EKG (ED ONLY) *Do not use* NOW Care 06/26/25 19:23 Completed EKG (ED Only) Stat Exams 06/26/25 19:23 Draft CBC Stat Lab 06/26/25 19:32 Completed CMP [Comprehensive Metabolic Panel] Stat Lab 06/26/25 19:32 Completed Lipase Stat Lab 06/26/25 19:32 Completed Troponin I Stat Lab 06/26/25 19:32 Completed Famotidine [Pepcid] Med 06/26/25 19:23 Discontinued 40 mg PO X1 ONE Ketorolac Inj [Toradol Inj] Med 06/26/25 19:23 Discontinued 30 mg IM X1 ONE Lidocaine 2% Viscous [Xylocaine 2% Viscous] Med 06/26/25 19:23 Discontinued 15 ml PO X1 ONE Ondansetron Odt [Zofran Odt] Med 06/26/25 19:24 Discontinued 4 mg PO X1 ONE mg Hyd/Al Hyd/Rolando Susp [Maalox Susp] Med 06/26/25 19:23 Discontinued 30 ml PO X1 ONE Vital Signs Vital signs: Vital Signs Temperature 98.2 F 06/26/25 19:10 Pulse Rate 71 06/26/25 19:10 Respiratory Rate 18 06/26/25 19:10 Blood Pressure 126/87 H 06/26/25 19:10 Pulse Oximetry (%) 99 06/26/25 19:10 Oxygen Delivery Method Room Air 06/26/25 19:10 PROCEDURES: EKG Interpretation #1: Date of EK06/26/25 Time of EK:23 Rate: 61 Interpretation: Interpreted by me EKG Impression: Normal sinus rhythm, No acute ST-T changes, No ectopy, No ischemic changes, Normal QRS, Normal intervals and Normal axis Additional EKG comment: No STEMI Abdominal Pain MDM MDM Narrative MDM Narrative:: 39yom presents to the ED for epigastric pain that initiated last night. Hx gastritis on EGD last year. Patient c/o nausea but no vomiting. No fever, sob, cp, diarrhea or urinary symptoms reported. Patient took Tylenol and Tums at home without relief. Patient reassessed. Symptoms improved after medications administered. ED workup and exam reassuring. Encouraged close follow-up with Dr. Presley if symptoms persist or worsen. Stable for discharge, RTED precautions given. Patient data External records reviewed:: [facility] previous records (06/24/2025 ED visit for chest pain) Clinical information provided by:: patient Social determinants that could affect healthcare access:: none Patient has the following chronic illnesses:: Gastritis How is presenting disease/condition affected by chronic disease/condition?: caused by Evaluation data The following diagnostics were reviewed and interpreted by me:: lab results and EKG tracing(s) Lab and/or radiology exams considered but not ordered:: Gallbladder ultrasound: Low suspicion for cholelithiasis/cholecystitis Interpretation Summary: No leukocytosis No anemia LFTs and lipase wnl Negative troponin Medications / Prescriptions Medications or Prescriptions considered but not ordered:: No antibiotics recommended at this time Medication administrations:: Medication Administration History Discontinued Medications Al Hydrox/Mg Hydrox/Simethicone (Mg Hyd/Al Hyd/Rolando (Maalox Reg) Susp 30 Ml Udc) 30 ml PO X1 ONE Stop: 06/26/25 19:24 Last Admin: 06/26/25 19:58 Dose: 30 ml Documented By: BD Famotidine (Famotidine 20 Mg Tablet) 40 mg PO X1 ONE Stop: 06/26/25 19:24 Last Admin: 06/26/25 19:58 Dose: 40 mg Documented By: BD Ketorolac Tromethamine (Ketorolac Inj 30 Mg/Ml Vial) 30 mg IM X1 ONE Stop: 06/26/25 19:24 Last Admin: 06/26/25 19:57 Dose: 30 mg Documented By: BD Lidocaine HCl (Lidocaine Viscous 2% 15 Ml Udc) 15 ml PO X1 ONE Stop: 06/26/25 19:24 Last Admin: 06/26/25 19:58 Dose: 15 ml Documented By: BD Ondansetron HCl (Ondansetron Odt 4 Mg Tabrap) 4 mg PO X1 ONE; Protocol Stop: 06/26/25:25 Last Admin: 06/26/25 19:58 Dose: 4 mg Documented By: BD Above medications administered in ED Consultations Consultation(s) initiated? (list below): No Diagnosis Differential diagnosis abdominal pain: other (Gastritis, PUD, cholelithiasis, cholecystitis, pancreatitis, gastroenteritis) Most likely diagnosis given after review of the tests above:: Gastritis, epigastric pain Admission Indicated Admission indicated?: not indicated Admission Request Was there a request for admission?: No Disposition Plan Disposition Plan: Discharge Discharge Attestation Discharge Attestation: The patient and all family members were given an opportunity to ask questions and understood the discharge instructions. Discharge instructions specifically effects, indications for sooner follow up or return to the emergency department, and the expected course of current diagnosis. Patient condition: Stable Discharge Plan Plan Patient Disposition: HOME (Self Care) Patient condition on transfer: Stable Prescriptions/Referrals Prescriptions/Med Rec: New famotidine [Pepcid] 40 mg tablet 40 mg PO QDAY Qty: 30 0RF acetaminophen [Tylenol Extra Strength] 500 mg tablet 1,000 mg PO Q6H PRN (Reason: pain) Qty: 30 0RF ondansetron 4 mg tablet,disintegrating 4 mg PO Q6H PRN (Reason: nausea and vomiting) Qty: 10 0RF No Action clarithromycin 500 mg tablet 500 mg PO BID Qty: 20 0RF lidocaine HCl [Lidocaine Viscous] 2 % solution 10 ml PO Q4HR PRN (Reason: sore throat) Qty: 100 0RF Excedrin Tension Headache 500-65 mg tablet 1 tab PO Q8H PRN (Reason: pain) Qty: 30 0RF lisinopril 10 mg tablet 10 mg PO DAILY diazepam 2 mg tablet 2 mg PO BID Patient Comments: TAKE 1 TABLET BY MOUTH TWICE DAILY NEEDED dicyclomine 10 mg capsule 10 mg PO BID PRN (Reason: abdominal pain) Patient Comments: TAKE 1 CAPSULE BY MOUTH TWICE DAILY NEEDED loratadine [Allergy Relief (loratadine)] 10 mg tablet 10 mg PO QDAY Referrals: Carlo Presley MD [Physician, Gastroenterology] Referral Note: Call to schedule an appointment if symptoms persist or worsen. Tricia Laird NP [Primary Care Provider] - In 1 week Problem List Clinical Impression: Gastritis, Epigastric abdominal pain Patient/Caregiver Discharge Instructions Education Materials: ED Gastritis (Adult) Print Language: Latvian Stand Alone Forms: Nadeen Award Info., Patient Portal Info Letter PA/GAME FARM SUPERVISOR Supervising Physician PA/GAME FARM SUPERVISOR Supervising Physician: Verena
[2025-06-26 19:49] LABS: Basophils # (Auto) 0.0 Thou/mm3 (0.0-0.2); Basophils % (Auto) 1 % (0-2.5); Eosinophils # (Auto) 0.1 Thou/mm3 (0.0-0.5); Eosinophils % (Auto) 2 % (0-10); Hematocrit 41.6 % (41.0-53.0); Hemoglobin 14.5 g/dL (13.5-16.0); Immature Granulocytes Auto 0.01 Thou/mm3 (0.00-0.00); Lymphocytes # (Auto) 2.0 Thou/mm3 (1.0-4.8); Lymphocytes % (Auto) 33 % (10-50); Mean Corpuscular HGB Conc 34.9 g/dl (31.0-37.0); Mean Corpuscular Hemoglobin 30.0 pg (25.0-35.0); Mean Corpuscular Volume 86 fL (80-100); Monocytes # (Auto) 0.3 Thou/mm3 (0.0-0.8); Monocytes % (Auto) 5 % (0-12); Neutrophils # (Auto) 3.7 Thou/mm3 (1.8-7.7); Neutrophils % (Auto) 60 % (37-80); Nucleated Red Blood Cell # 0.00 Thou/mm3 (0.00-0.00); Nucleated Red Blood Cell % 0 /100 WBC (0); Platelet Count 228 Thou/mm3 (140-440); RDW Standard Deviation 38.9 fL (35.1-43.9); Red Blood Count 4.84 Miln/mm3 (4.50-5.90); White Blood Count 6.2 Thou/mm3 (3.8-10.6)
[2025-06-26] MEDS: KETOROLAC INJ 30 MG/ML VIAL IM (19:57)
[2025-06-26] MEDS: MG HYD/AL HYD/SIME (Maalox Reg) SUSP 30 ML UDC PO (19:58)
[2025-06-26] MEDS: ONDANSETRON ODT 4 MG TABRAP PO (19:58)
[2025-06-26] MEDS: FAMOTIDINE 20 MG TABLET 40 MG PO (19:58)
[2025-06-26] MEDS: LIDOCAINE VISCOUS 2% 15 ML UDC PO (19:58)
[2025-06-26 20:06] LABS: Alanine Aminotransferase 17 U/L (10-49); Albumin, Serum 4.9 gm/dL (3.5-5.0); Albumin/Globulin Ratio 2.1 (1.2-2.2); Alkaline Phosphatase 58 U/L (46-116); Anion Gap 8 (7-16); Aspartate Amino Transferase 15 U/L (0-34); BUN/Creatinine Ratio 10 Ratio (12-20); Bilirubin,Total 0.9 mg/dL (0.3-1.2); Blood Urea Nitrogen 11 mg/dL (9-23); Calcium 9.9 mg/dL (8.3-10.6); Calcium (Corrected) 9.9 mg/dL (8.5-10.1); Carbon Dioxide 28.2 mMol/L (20.0-31.0); Chloride 104 mMol/L (98-107); Creatinine (Component) 1.1 mg/dL (0.6-1.3); Estimated Creatinine Clearance 91.3 mL/min (>60); Globulin 2.3 gm/dL (2.3-3.5); Glucose 91 mg/dL (74-106); Lipase 40 U/L (12-53); Osmolality,Calculated 278 (275-295); Potassium 3.8 mMol/L (3.4-5.1); Sodium 140 mMol/L (136-145); Total Protein 7.2 gm/dL (5.7-8.2); Troponin I < 0.002 ng/mL (0.0-0.045); eGFR > 60 See Note
== END 2025-06-26 20:49 | disposition home or self-care (01) ==
PROVIDERS: Physician Assistant; Emergency Provider Emergency Medicine; PCP Nurse Practitioner Family
DX: K29.70 Gastritis, unspecified, without bleeding (principal)
CPT/HCPCS: 36415; 80053; 83690; 84484; 85025; 93005; 96372; 99283; J1885; J3490; Q0162; A9270

== ENCOUNTER 2025-07-04 09:13 | Emergency (ER) | payer MEDICAID, SELFPAY ==
--- NOTE | 2025-07-04 09:16 | EKG_ITS ---
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
[2025-07-04 09:30] VITALS: BP 145/83; PULSE 121; RESP 20; TEMP 36.8; O2SAT 100
[2025-07-04 09:31] VITALS: BMI 24.8
--- NOTE | 2025-07-04 09:51 | EKG_ITS ---
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
--- NOTE | 2025-07-04 09:51 | XR_ITS ---
EXAMINATION: PA lateral chest 2 views TECHNIQUE: Upright PA lateral chest 2 views Date and time: July 04, 2025, 10 0 6:00 a.m. INDICATIONS: Chest pain numbness in left arm beginning 2 days ago FINDINGS: Normal heart size Lungs are clear. The osseous structures are intact IMPRESSION: No active disease
--- NOTE | 2025-07-04 09:57 | PD.EDRME ---
Rapid Medical Screening Exam RME Arrival date/time: 07/04/25 09:13 Chief Complaint: Chest Pain Vital signs: Vital Signs Temperature 98.3 F 07/04/25 09:30 Pulse Rate 121 H 07/04/25 09:30 Respiratory Rate 20 07/04/25 09:30 Blood Pressure 145/83 H 07/04/25 09:30 Pulse Oximetry (%) 100 07/04/25 09:30 Oxygen Delivery Method Room Air 07/04/25 09:30 RME Narrative: 39-year-old male complaining of left-sided chest pain, palpitations, radiating to his left arm along with shortness of breath and nausea vomiting just prior to arrival after sitting down and eating breakfast. I briefly performed a screening evaluation to initiate work-up and expedite care. Complete history, physical exam, and plan of care is deferred to the provider in the main ED. Exam: Head: Normocephalic, atraumatic. Respiratory: Normal effort. No respiratory distress or accessory muscle use. Neuro: Speech normal. Skin: Warm, dry, normal color. Psych: Pleasant. Normal affect. Cooperative. Clinical Impression: Chest pain
[2025-07-04 10:23] LABS: Basophils # (Auto) 0.0 Thou/mm3 (0.0-0.2); Basophils % (Auto) 1 % (0-2.5); Eosinophils # (Auto) 0.1 Thou/mm3 (0.0-0.5); Eosinophils % (Auto) 1 % (0-10); Hematocrit 42.0 % (41.0-53.0); Hemoglobin 14.7 g/dL (13.5-16.0); Immature Granulocytes Auto 0.01 Thou/mm3 (0.00-0.00); Lymphocytes # (Auto) 1.0 Thou/mm3 (1.0-4.8); Lymphocytes % (Auto) 27 % (10-50); Mean Corpuscular HGB Conc 35.0 g/dl (31.0-37.0); Mean Corpuscular Hemoglobin 30.1 pg (25.0-35.0); Mean Corpuscular Volume 86 fL (80-100); Monocytes # (Auto) 0.2 Thou/mm3 (0.0-0.8); Monocytes % (Auto) 4 % (0-12); Neutrophils # (Auto) 2.4 Thou/mm3 (1.8-7.7); Neutrophils % (Auto) 66 % (37-80); Nucleated Red Blood Cell # 0.00 Thou/mm3 (0.00-0.00); Nucleated Red Blood Cell % 0 /100 WBC (0); Platelet Count 227 Thou/mm3 (140-440); RDW Standard Deviation 38.8 fL (35.1-43.9); Red Blood Count 4.88 Miln/mm3 (4.50-5.90); White Blood Count 3.7 Thou/mm3 (3.8-10.6)
[2025-07-04 10:39] LABS: Collection Type, Urine Clean Catch; Squamous Epithelial Cell,Urine 0 /hpf (0-5)
[2025-07-04 10:41] LABS: INR 1.0 (0.9-1.3); Partial Thromboplastin Time 24.8 Seconds (22.0-36.0); Prothrombin Time 10.9 Seconds (9.0-12.2)
[2025-07-04 10:42] LABS: B-Type Natriuretic Peptide < 20 pg/mL (0-100)
[2025-07-04 10:46] LABS: Alanine Aminotransferase 15 U/L (10-49); Albumin, Serum 5.0 gm/dL (3.5-5.0); Albumin/Globulin Ratio 2.6 (1.2-2.2); Alkaline Phosphatase 57 U/L (46-116); Anion Gap 8 (7-16); Aspartate Amino Transferase 17 U/L (0-34); BUN/Creatinine Ratio 10 Ratio (12-20); Bilirubin,Total 0.7 mg/dL (0.3-1.2); Blood Urea Nitrogen 11 mg/dL (9-23); Calcium 10.0 mg/dL (8.3-10.6); Calcium (Corrected) 10.0 mg/dL (8.5-10.1); Carbon Dioxide 30.0 mMol/L (20.0-31.0); Chloride 104 mMol/L (98-107); Creatinine (Component) 1.1 mg/dL (0.6-1.3); Estimated Creatinine Clearance 91.3 mL/min (>60); Globulin 1.9 gm/dL (2.3-3.5); Glucose 126 mg/dL (74-106); Lipase 50 U/L (12-53); Osmolality,Calculated 284 (275-295); Potassium 3.8 mMol/L (3.4-5.1); Sodium 142 mMol/L (136-145); Thyroid Stimulating Hormone 1.01 uIU/mL (0.55-4.78); Total Protein 6.9 gm/dL (5.7-8.2); Troponin I < 0.002 ng/mL (0.0-0.045); eGFR > 60 See Note
[2025-07-04 10:47] LABS: Bilirubin,Urine Negative (Negative); Blood,Urine Negative (Negative); Clarity,Urine Clear (Clear/Hazy); Color,Urine Lt-Yellow (Lt Yel-Yel); Culture Indicated,Urine Not Indicated; Glucose, Urine Negative (Negative); Ketones,Urine Negative (Negative); Leukocyte Esterase,Urine Negative (Negative); Nitrite,Urine Negative (Negative); PH,Urine 6.5 (5.0-7.0); Protein,Urine Trace (Neg - Trace); RBC,Urine 2 /hpf (0-3); Specific Gravity,Urine 1.024 (1.001-1.035); Urobilinogen,Urine Negative mg/dL (0.0-1.0); WBC,Urine 1 /hpf (0-5)
[2025-07-04 10:57] LABS: Amphetamine/Methamp Scrn,U Negative (Negative); Barbiturate Screen,Urine Negative (Negative); Benzodiazepines Screen,Urine Negative (Negative); Benzoylecgonine Screen, Ur Negative (Negative); Fentanyl Screen,Urine Negative (Negative); Opiate Screen,Urine Negative (Negative); THC Screen,Urine Negative (Negative)
[2025-07-04 11:02] VITALS: BP 120/79; PULSE 70; RESP 15; TEMP 36.8; O2SAT 100
--- NOTE | 2025-07-04 11:43 | PD.EDCHEST ---
ED Chest Pain RME/HPI General Chief Complaint: Chest Pain Stated Complaint: C/P HEART PALPITATIONS, L ARM PAIN X 30 MINS AGO Time Seen by Provider: 07/04/25 11:14 Arrival date/time: 07/04/25 09:13 39-year-old male patient came in for evaluation regarding palpitation. Incident happened more than 30 minutes prior to ER visit as sudden onset of palpitation, will moving his bowel. Patient heart rate went up all the way to 150 according to him lasting for several minutes. Patient did not take his metoprolol this morning. Patient denies any chest pain patient denies any dizziness denies any syncope denies any other complaints no medication was taken prior to ER visit. RME / HPI RME / HPI narrative: 39-year-old male complaining of left-sided chest pain, palpitations, radiating to his left arm along with shortness of breath and nausea vomiting just prior to arrival after sitting down and eating breakfast. I briefly performed a screening evaluation to initiate work-up and expedite care. Complete history, physical exam, and plan of care is deferred to the provider in the main ED. Exam: Head: Normocephalic, atraumatic. Respiratory: Normal effort. No respiratory distress or accessory muscle use. Neuro: Speech normal. Skin: Warm, dry, normal color. Psych: Pleasant. Normal affect. Cooperative. Impression: Chest pain Related Data Home Medications ?Medication ?Instructions ?Recorded ?Confirmed lisinopril 10 mg tablet 10 mg PO DAILY High blood pressure 12/03/24 12/04/24 diazepam 2 mg tablet 2 mg PO BID 12/04/24 12/04/24 Held on 12/04/24. Instructions: Resume on 12/05/24. dicyclomine 10 mg capsule 10 mg PO BID PRN abdominal pain 12/04/24 12/04/24 loratadine 10 mg tablet (Allergy 10 mg PO QDAY 12/04/24 12/04/24 Relief (loratadine)) Previous Rx's ?Medication ?Instructions ?Recorded clarithromycin 500 mg tablet 500 mg PO BID #20 tabs 04/20/25 lidocaine HCl 2 % mucosal solution 10 ml PO Q4HR PRN sore throat #100 04/20/25 (Lidocaine Viscous) mL acetaminophen-caffeine 500 mg-65 1 tab PO Q8H PRN pain #30 tabs 06/21/25 mg tablet (Excedrin Tension Headache) acetaminophen 500 mg tablet 1,000 mg (2 x 500 mg) PO Q6H PRN 06/26/25 (Tylenol Extra Strength) pain #30 tabs famotidine 40 mg tablet (Pepcid) 40 mg PO QDAY #30 tabs 06/26/25 ondansetron 4 mg disintegrating 4 mg PO Q6H PRN nausea and 06/26/25 tablet vomiting #10 tabs alprazolam 0.5 mg tablet (Xanax) 0.5 mg PO BID PRN anxiety #20 tabs 07/04/25 Allergies Allergy/AdvReac Type Severity Reaction Status Date / Time Penicillins Allergy Severe Redness of Verified 07/04/25 09:15 Skin Review of Systems Review of Systems Narrative Review of Systems: Review of system reviewed and within normal limits except mentioned in HPI ED Exam Narrative Physical exam: VITAL SIGNS: Reviewed. GENERAL APPEARANCE: Alert and interactive, follows commands, no acute distress, HEAD AND FACE: Non-traumatic. ENT: PERRL, pink conjunctivitis, eyelid no trauma, Mucous membrane moist. NECK: Supple, nontender, no nuchal rigidity. CHEST: No tenderness, no crepitus, no paradoxical movement, no retractions. LUNGS: Clear, well ventilated, symmetric, no rales, no wheezing, no ronchi, no stridor, good breath sounds bilaterally. HEART: Regular rate, regular rhythm, no murmur, no gallops. ABDOMEN: Soft, positive bowel sounds, nondistended, no guarding, nontender, no rebound, no masses, RECTAL: Deferred. GENITAL: Deferred. NEUROLOGICAL: Gross motor function intact sensory function intact, Appropriate for age. MUSCULOSKELETAL: low back nontender, full range of motion. EXTREMITIES: Nontender, full range of motion. SKIN: Color pink, dry, no rash, no lacerations, no abrasions, no contusions. LYMPHATICS: Deferred. Course Quality Measures none Orders Category Date Time Status Continuous EKG monitoring NOW Care 07/04/25 09:51 Active Continuous Pulse Oximetry NOW Care 07/04/25 09:51 Completed EKG (ED ONLY) *Do not use* NOW Care 07/04/25 09:16 Completed EKG (ED ONLY) *Do not use* NOW Care 07/04/25 09:51 Completed EKG (ED ONLY) *Do not use* NOW Care 07/04/25 11:51 Completed EKG (ED Only) Stat Exams 07/04/25 09:16 Draft EKG (ED Only) Stat Exams 07/04/25 09:51 Draft EKG (ED Only) Stat Exams 07/04/25 11:51 Draft XR chest 2V Stat Exams 07/04/25 09:51 Completed B-Type Natriuretic Peptide Stat Lab 07/04/25 09:58 Completed CBC Stat Lab 07/04/25 09:58 Completed Comprehensive Metabolic Panel Stat Lab 07/04/25 09:58 Completed Drug Screen,Urine Stat Lab 07/04/25 10:32 Completed INR [Prothrombin Time with INR] Stat Lab 07/04/25 09:58 Completed Lipase Stat Lab 07/04/25 09:58 Completed Partial Thromboplastin Time Stat Lab 07/04/25 09:58 Completed TSH [Thyroid Stimulating Hormone] Stat Lab 07/04/25 09:58 Completed Troponin I Stat Lab 07/04/25 09:58 Completed Troponin I Stat Lab 07/04/25 12:59 Completed Urinalysis, C/S if Indicated Stat Lab 07/04/25 10:32 Completed ALPRazoLAM [Xanax] Med 07/04/25 11:51 Discontinued 0.5 mg PO X1 ONE LORazepam [Ativan Inj] Med 07/04/25 12:52 Discontinued 1 mg IVP X1 ONE Metoprolol Succinate Xl [Toprol Xl] Med 07/04/25 11:51 Discontinued 25 mg PO X1 ONE Ringers Lactated 1000 ml [Lactated Ringers] 1,000 ml Med 07/04/25 12:52 Active IV 999 mls/hr mg Hyd/Al Hyd/Rolando Susp [Maalox Susp] Med 07/04/25 11:51 Discontinued 30 ml PO X1 ONE Vital Signs Vital signs: Vital Signs Temperature 98.3 F 07/04/25 09:30 Pulse Rate 121 H 07/04/25 09:30 Respiratory Rate 20 07/04/25 09:30 Blood Pressure 145/83 H 07/04/25 09:30 Pulse Oximetry (%) 100 07/04/25 09:30 Oxygen Delivery Method Room Air 07/04/25 09:30 Chest Pain MDM Narrative MDM Narrative:: 39-year-old male patient came in for evaluation regarding palpitation. Incident happened more than 30 minutes prior to ER visit as sudden onset of palpitation, will moving his bowel. Patient heart rate went up all the way to 150 according to him lasting for several minutes. Patient did not take his metoprolol this morning. Patient denies any chest pain patient denies any dizziness denies any syncope denies any other complaints no medication was taken prior to ER visit. Patient's workup today including troponin came back normal. Patient EKG showed sinus tachycardia, ventricular to 111 bpm, no ST segment elevation or depression noted. On my reevaluation patient's heart rate was noted to be 78. Patient was given his dose of metoprolol, Xanax, and Maalox. Patient was also given IV fluids. Repeat EKG showed sinus rhythm, ventricular rate of 65 bpm, no ST segment elevation or depression noted. I personally reviewed and interpreted the x-ray of this patient. There is no acute abnormalities found, no infiltrates no pneumothorax no hemothorax normal chest x-ray. Review of other structures was without significant abnormal findings also. I additionally reviewed the radiologist report and agree with the interpretation. Repeat troponin also came back normal I also gave patient Ativan. Heart rate was noted to be 85 prior to discharge discussed the case regarding his palpitation that is related to panic attack. Patient was advised to follow-up closely with PCP and for referral to psychiatrist. Patient agrees with the plan I prescribed this patient Xanax as needed for anxiety. Patient data External records reviewed:: None Clinical information provided by:: patient Social determinants that could affect healthcare access:: none Patient has the following chronic illnesses:: Hypertension How is presenting disease/condition affected by chronic disease/condition?: exacerbated by Evaluation data The following diagnostics were reviewed and interpreted by me:: lab results, radiology exam(s) and EKG tracing(s) Lab and/or radiology exams considered but not ordered:: None Interpretation Summary: See [facility] Medications / Prescriptions Medications or Prescriptions considered but not ordered:: None Medication administrations:: Medication Administration History Lactated Ringer's (Lactated Ringers) 1,000 mls @ 999 mls/hr IV .Q1H1M ONE Stop: 07/04/25 13:52 Last Admin: 07/04/25 13:12 Dose: 999 mls/hr Documented By: EF Discontinued Medications Al Hydrox/Mg Hydrox/Simethicone (Mg Hyd/Al Hyd/Rolando (Maalox Reg) Susp 30 Ml Udc) 30 ml PO X1 ONE Stop: 07/04/25 11:52 Last Admin: 07/04/25 12:13 Dose: 30 ml Documented By: EF Alprazolam (Alprazolam 0.25 Mg Tablet) 0.5 mg PO X1 ONE Stop: 07/04/25 11:52 Last Admin: 07/04/25 12:13 Dose: 0.5 mg Documented By: EF Lorazepam (Lorazepam 2 Mg/Ml Vial) 1 mg IVP X1 ONE Stop: 07/04/25 12:53 Last Admin: 07/04/25 13:12 Dose: 1 mg Documented By: EF Metoprolol Succinate (Metoprolol Succinate Xl 25 Mg Tabcr) 25 mg PO X1 ONE Stop: 07/04/25 11:52 Last Admin: 07/04/25 12:13 Dose: 25 mg Documented By: EF See above Consultations Consultation(s) initiated? (list below): No Diagnosis Chest Pain Differential Diagnosis: pneumothorax and chest pain Most likely diagnosis given after review of the tests above:: Generalized anxiety with panic attack Admission Indicated Admission indicated?: not indicated Admission Request Was there a request for admission?: No Disposition Plan Disposition Plan: Discharge Discharge Attestation Discharge Attestation: The patient and all family members were given an opportunity to ask questions and understood the discharge instructions. Discharge instructions specifically effects, indications for sooner follow up or return to the emergency department, and the expected course of current diagnosis. Patient condition: Stable Discharge Plan Plan Patient Disposition: HOME (Self Care) Discharge Disposition comment: Stable Prescriptions/Referrals Prescriptions/Med Rec: New alprazolam [Xanax] 0.5 mg tablet 0.5 mg PO BID PRN (Reason: anxiety) Qty: 20 0RF No Action clarithromycin 500 mg tablet 500 mg PO BID Qty: 20 0RF lidocaine HCl [Lidocaine Viscous] 2 % solution 10 ml PO Q4HR PRN (Reason: sore throat) Qty: 100 0RF Excedrin Tension Headache 500-65 mg tablet 1 tab PO Q8H PRN (Reason: pain) Qty: 30 0RF famotidine [Pepcid] 40 mg tablet 40 mg PO QDAY Qty: 30 0RF acetaminophen [Tylenol Extra Strength] 500 mg tablet 1,000 mg PO Q6H PRN (Reason: pain) Qty: 30 0RF ondansetron 4 mg tablet,disintegrating 4 mg PO Q6H PRN (Reason: nausea and vomiting) Qty: 10 0RF lisinopril 10 mg tablet 10 mg PO DAILY diazepam 2 mg tablet 2 mg PO BID Patient Comments: TAKE 1 TABLET BY MOUTH TWICE DAILY NEEDED dicyclomine 10 mg capsule 10 mg PO BID PRN (Reason: abdominal pain) Patient Comments: TAKE 1 CAPSULE BY MOUTH TWICE DAILY NEEDED loratadine [Allergy Relief (loratadine)] 10 mg tablet 10 mg PO QDAY Referrals: Tricia Laird, [employer]AL[employer] ASS[employer]ANCE LAB TECHNICIAN [Primary Care Provider] - In 1 week Problem List Clinical Impression: Generalized anxiety disorder with panic attacks Patient/Caregiver Discharge Instructions Discharge Activity: activity as tolerated Education Materials: ED Panic Attack Additional Instructions: Thank you for the opportunity for serving you today. You are stable for discharged . You are advised to: Follow-up with your PCP in 1 to 2 days Return to ED for worsening of symptoms Increase oral fluids Take medication as prescribed Possible PCP to refer you to a psychologist/psychiatrist in few days Print Language: Filipino Stand Alone Forms: Nadeen Award Info., Patient Portal Info Letter PA/LOANS OFFICER Supervising Physician PA/LOANS OFFICER Supervising Physician: MD Nirali
--- NOTE | 2025-07-04 11:51 | EKG_ITS ---
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
[2025-07-04 12:13] VITALS: BP 132/78; PULSE 67
[2025-07-04] MEDS: MG HYD/AL HYD/SIME (Maalox Reg) SUSP 30 ML UDC PO (12:13)
[2025-07-04] MEDS: METOPROLOL SUCCINATE XL 25 MG TABCR PO (12:13)
[2025-07-04 12:52] VITALS: BP 144/96; PULSE 85; RESP 20; TEMP 36.7; O2SAT 100
[2025-07-04] MEDS: LORazepam 2 MG/ML VIAL 1 MG IVP (13:12)
[2025-07-04] MEDS: RINGERS LACTATED 1000 ML 1,000 ML 999 ML IV (13:12)
[2025-07-04 13:24] LABS: Troponin I < 0.020 ng/mL (0.0-0.045)
== END 2025-07-04 14:22 | disposition home or self-care (01) ==
PROVIDERS: Nurse Practitioner Family; Physician Assistant; Emergency Provider Family Medicine; PCP Nurse Practitioner Family
DX: F41.0 Panic disorder [episodic paroxysmal anxiety] (principal); F41.1 Generalized anxiety disorder; R00.0 Tachycardia, unspecified; I10 Essential (primary) hypertension
CPT/HCPCS: 36415; 71046; 80053; 80307; 81001; 83690; 83880; 84443; 84484; 85025; 85610; 85730; 93005; 96361; 96374; 99284; J2060; J7120; A9270

== ENCOUNTER 2025-07-09 08:22 | Emergency (ER) | payer MEDICAID, SELFPAY ==
[2025-07-09 08:23] VITALS: BMI 23.6
--- NOTE | 2025-07-09 08:26 | EKG_ITS ---
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
[2025-07-09 08:39] VITALS: BP 139/92; PULSE 81; RESP 18; TEMP 36.7; O2SAT 99
--- NOTE | 2025-07-09 08:39 | XR_ITS ---
EXAMINATION: PA lateral chest 2 views TECHNIQUE: Upright PA lateral chest 2 views Date and time: July 09, 2025, 0846 hours, comparison July 04, 2025 INDICATIONS: Tachycardia 2 weeks FINDINGS: Normal heart size. Lungs are clear. Osseous structures are intact IMPRESSION: No active disease
[2025-07-09 08:47] VITALS: PULSE 88
--- NOTE | 2025-07-09 09:18 | EDNOTE_ITS ---
<Statement entered by Jessie Hayden MD - 07/09/25 17:38> I, Jessie Hayden MD, have reviewed the history, exam, and assessment of the patient. I have evaluated the patient independently and agree with the plan of care documented by Dr. Slater. All diagnostic studies were reviewed and discussed. I confirm the diagnosis as documented by the Resident. I was present during the Medical Decision Making for this patient. The patient's plan of care was created between myself and the Resident and consistent with our discussion of the patient's case. Episodes of paroxysmal tachycardia with heart rates in the 120s?140s, worsening over several months, but without chest pain, dyspnea, or other acute symptoms. Cardiac exam, HEENT, and respiratory exam are normal. Patient has a history of prior negative cardiac catheterization, echocardiogram, and 1-day Holter monitor, and is currently on metoprolol and lisinopril. Differential includes atrial fibrillation, supraventricular tachycardia, sinus tachycardia, hyperthyroidism, and anxiety disorder. No substance use or caffeine. Increased stress noted as a possible trigger. ECG and telemetry considered; patient plans follow-up with cardiology for extended Holter monitoring. Given stable exam and absence of acute symptoms, outpatient follow-up is appropriate. ED Arrhythmia Palp. RME/HPI General Chief Complaint: Arrhythmia/Palpitations Stated Complaint: HEART PALPITATIONS, HTN, SENT BY CARDIOLOGY Time Seen by Provider: 07/09/25 08:57 Arrival date/time: 07/09/25 08:22 RME / HPI RME / HPI narrative: Patient is a 39-year-old male with a past medical history of hypertension and history of hemorrhoids who presented to the emergency room with a chief complaint of palpitations/fast heart rate. Patient has had fast heart rate for the past year currently following Dr. Kelby Grey,, cardiology. Patient stated his heart rate jumps from low 130s to 140s lasting about 5 to 10 minutes consistently every night. Patient denied chest pain shortness of breath. Denied any pain or radiation. Palpitations typically occur at rest specifically at night and have been known to wake him up from his sleep. Link Trainer Maintenance Man gave him flecainide to take as needed which patient took during this episode. Cardiology trying to set patient up with Holter Monitor. Related Data Home Medications ?Medication ?Instructions ?Recorded ?Confirmed lisinopril 10 mg tablet 10 mg PO DAILY High blood pr essure 12/03/24 12/04/24 dicyclomine 10 mg capsule 10 mg PO BID PRN abdominal p ain 12/04/24 12/04/24 loratadine 10 mg tablet (Allergy 10 mg PO QDAY 5 12/04/24 Relief (loratadine)) Previous Rx's ?Medication ?Instructions ?Recorded clarithromycin 500 mg tablet 500 mg PO BID #20 tabs lidocaine HCl 2 % mucosal solution 10 ml PO Q4HR PRN s ore throat #100 04/20/25 (Lidocaine Viscous) mL acetaminophen-caffeine 500 mg-65 1 tab PO Q8H PRN pain #30 tabs 06/21/25 mg tablet (Excedrin Tension Headache) acetaminophen 500 mg tablet 1,000 mg (2 x 500 mg) PO Q 6H PRN 06/26/25 (Tylenol Extra Strength) pain #30 tabs famotidine 40 mg tablet (Pepcid) 40 mg PO QDAY #30 tab s 06/26/25 ondansetron 4 mg disintegrating 4 mg PO Q6H PRN nausea and 06/26/25 tablet vomiting #10 tabs alprazolam 0.5 mg tablet (Xanax) 0.5 mg PO BID PRN anx iety #20 tabs 07/04/25 Allergies Allergy/AdvReac Type Severity Reaction Status Date / Time Penicillins Allergy Severe Redness of Verified 07/09/25 08:25 Skin Review of Systems Review of Systems Narrative Review of Systems: General appearance: NO weight change, NO fatigue, NO weakness, NO fever, NO chills, NO night sweats, No cough Skin: NO rash, NO itching, NO sores, NO moles HEENT: NO Trauma, NO nausea, NO vomiting, NO visual changes, NO blurry vision, NO double vision, NO tinnitus, NO vertigo, NO ear discharge, NO rhinorrhea, NO stuffiness, NO sneezing, NO allergy, NO epistaxis. NO Hoarseness, NO sore throat, NO swollen neck. Cardiac: Yes Palpitations, NO dyspnea on exertion, NO orthopnea, NO paroxysmal nocturnal dyspnea, NO edema Respiratory: NO Shortness of Breath, NO Wheezing, NO Cough, NO Sputum, NO hemoptysis GI:NO appetite, NO nausea, NO vomiting, NO dysphagia, NO changes in bowel frequency, NO stool color, NO diarrhea, NO constipation, NO hemetemesis, NO hemorrhoids, NO melena, NO hematechezia, NO abdominal pain, NO jaundice Renal: NO frequency, NO hesitancy, NO urgency, NO hematuria, NO nocturia, NO incontinence MSK: NO muscle weakness, NO gout, NO arthritis, NO muscle stiffness Neuro: NO headaches, NO tremors, NO weakness, NO paralysis, NO seizures, NO loss of consciousness, NO numbness. Hem: NO anemia, NO easy bruising/bleeding, NO petechiae, NO purpura Endo: NO heat/cold intolerance, NO excessive sweating, NO polyuria, NO polydipsia, NO polyphagia, NO thyroid problems, NO diabetes Pysch: NO mood, NO anxiety, NO depression ED Exam Narrative Physical exam: General Appearance: Alert & Oriented X3, well-nourished male who is lying in bed in no acute distress HEENT: Skull symmetrical and atraumatic. Conjunctivae pink and moist. Pupils equal, round, reactive to light and accommodation (PERRL). External ear without lesion or discharge. Straight, nares patient, mucosa pink, no discharge. Cardio: Normal Rate and Rhythm with S1 and S2 heart sounds. No murmurs or extra heart sounds auscultated. No bruits on carotid auscultation. No peripheral edema or cyanosis. Lungs: Symmetric with good expansion. Chest and back non-tender. Breath sounds vesicular without crackles, wheezing or rhonchi Abdomen: Non-tender, Non-distended, Normal Reactive Bowel Sounds Neuro: Alert, cooperative, oriented to person, place, and time. Speech clear. CN grossly intact. Upper motor strength 5/5 and Lower motor strength 5/5. Sensation intact. 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 Care 07/09/25 08:39 Active EKG (ED ONLY) *Do not use* NOW Care 07/09/25 08:26 Completed EKG (ED Only) Stat Exams 07/09/25 08:26 Draft XR chest 2V Stat Exams 07/09/25 08:39 Taken CBC Stat Lab 07/09/25 08:39 Ordered Comprehensive Metabolic Panel Stat Lab 07/09/25 08:39 Ordered D-Dimer Stat Lab 07/09/25 08:40 Ordered TSH [Thyroid Stimulating Hormone] Stat Lab 07/09/25 09:15 Ordered Troponin I Stat Lab 07/09/25 08:39 Ordered Vital Signs Vital signs: Vital Signs Temperature 98.1 F 07/09/25 08:39 Pulse Rate 81 07/09/25 08:39 Respiratory Rate 18 07/09/25 08:39 Blood Pressure 139/92 H 07/09/25 08:39 Pulse Oximetry (%) 99 07/09/25 08:39 Oxygen Delivery Method Room Air 07/09/25 08:39 Arrhythmia/Palpitations Patient data External records reviewed:: [facility] previous records Clinical information provided by:: patient Social determinants that could affect healthcare access:: none Patient has the following chronic illnesses:: hypertension and history of hemorrhoids How is presenting disease/condition affected by chronic disease/condition?: uneffected by (HTN ) Evaluation data The following diagnostics were reviewed and interpreted by me:: lab results and EKG tracing(s) Lab and/or radiology exams considered but not ordered:: None Interpretation Summary: Patient is a 39-year-old male with a past medical history of hypertension and history of hemorrhoids who follows with cardiology for sinus tachycardia. Patient presented to the emergency room with a chief complaint of palpitations as patient tracks his heart rate on his phone and noted a fast beat. No leukocytosis noted on CBC no anemia. Electrolytes within normal limits including sodium and potassium. Troponins within normal limits. EKG, no ST elevation noted. Chest x-ray no acute process, negative for pneumonia. Urine toxicology negative. Send out for metanephrines ordered. Diagnosed with palpitations and noted to be sinus rate and rhythm. #Palpitations - The patient's plan was discussed with attending Dr. Catracho Slater MD PGY2 Internal Medicine Medications / Prescriptions Medications or Prescriptions considered but not ordered:: NOne Medication administrations:: None Consultations Consultation(s) initiated? (list below): No Diagnosis Differential diagnosis arrhythmia/palpitations: palpitations, anxiety, sinus tachycardia and artial fibrillation Most likely diagnosis given after review of the tests above:: Patient is a 39-year-old male with a past medical history of hypertension and history of hemorrhoids who follows with cardiology for concern of sinus tachy. Patient presented to the emergency room with a chief complaint of palpitations as patient tracks his heart rate on his phone and noted a fast beat. No leukocytosis noted on CBC no anemia. Electrolytes within normal limits including sodium and potassium. Troponins within normal limits. EKG, no ST elevation noted. 1 PVC noted on the tele monitor. Chest x-ray no acute process, negative for pneumonia. Urine toxicology negative. Send out for metanephrines ordered. Patient has been diagnosed with palpitations likely secondary to anxiety. #Palpitations - The patient's plan was discussed with attending Dr. Catracho Slater MD PGY2 Internal Medicine Admission Indicated Admission indicated?: not indicated Admission Request Was there a request for admission?: No Disposition Plan Disposition Plan: Discharge Discharge Attestation Discharge Attestation: The patient and all family members were given an opportunity to ask questions and understood the discharge instructions. Discharge instructions specifically effects, indications for sooner follow up or return to the emergency department, and the expected course of current diagnosis. Patient condition: Stable Discharge Plan Plan Patient Disposition: HOME (Self Care) Patient condition on transfer: Stable Health Concerns: Discharge instructions -Your heart rate has been in sinus rhythm at a normal rate. -Please follow-up metanephrines laboratory results within 1 to 2 weeks, request primary provider to obtain records. -Continue to follow-up with cardiology, as you may benefit from a Holter monitor. - Please follow-up with your primary care provider. -If your symptoms worsens please return to the emergency room. Prescriptions/Referrals Prescriptions/Med Rec: Continued clarithromycin 500 mg tablet 500 mg PO BID Qty: 20 0RF lidocaine HCl [Lidocaine Viscous] 2 % solution 10 ml PO Q4HR PRN (Reason: sore throat) Qty: 100 0RF Excedrin Tension Headache 500-65 mg tablet 1 tab PO Q8H PRN (Reason: pain) Qty: 30 0RF famotidine [Pepcid] 40 mg tablet 40 mg PO QDAY Qty: 30 0RF acetaminophen [Tylenol Extra Strength] 500 mg tablet 1,000 mg PO Q6H PRN (Reason: pain) Qty: 30 0RF ondansetron 4 mg tablet,disintegrating 4 mg PO Q6H PRN (Reason: nausea and vomiting) Qty: 10 0RF lisinopril 10 mg tablet 10 mg PO DAILY dicyclomine 10 mg capsule 10 mg PO BID PRN (Reason: abdominal pain) Patient Comments: TAKE 1 CAPSULE BY MOUTH TWICE DAILY NEEDED loratadine [Allergy Relief (loratadine)] 10 mg tablet 10 mg PO QDAY alprazolam [Xanax] 0.5 mg tablet 0.5 mg PO BID PRN (Reason: anxiety) Qty: 20 0RF Discontinued diazepam 2 mg tablet 2 mg PO BID Patient Comments: TAKE 1 TABLET BY MOUTH TWICE DAILY NEEDED Referrals: Tricia Laird CARPET INSPECTOR FINISHED [Primary Care Provider] - In 1 week Problem List Clinical Impression: Palpitations Patient/Caregiver Discharge Instructions Education Materials: Understanding Heart Palpitations, ED Palpitations Additional Instructions: Some general health principles that can help you are the [employer] principles: Nutrition (eat a plant-based diet, avoiding meats in general, avoiding highly processed foods) Exercise (Daily exercise/walks as tolerated) Water (Drink adequate fresh water to maintain hydration, concentrating on water rather than on soda, coffee, tea, juice, etc for hydration) [place] (Spend time - 15-20 minutes or so with skin exposed in the ophthalmic photographer and late evening sun for Vitamin D health benefits) [place] (Avoid alcohol, illicit drugs, caffeinated beverages, smoking, etc) Air (Deep breathing exercises in the early mornings in fresh air) Rest (Adequate rest at night, going to bed a few hours before midnight and avoiding all screens/television/loud music in the time right before going to bed, also avoiding heavy meals just prior to going to bed) Trust in God (Spend time daily in Bible study and prayer - health benefits in contemplation of God's true character) Additional resources that can benefit: [email or web address]), look under resources and seminars. Another good website is [email or web address] Print Language: Slovenian Stand Alone Forms: [employer]adeen Award Info., Patient Portal Info Letter
[2025-07-09 09:51] LABS: Basophils # (Auto) 0.0 Thou/mm3 (0.0-0.2); Basophils % (Auto) 1 % (0-2.5); Eosinophils # (Auto) 0.0 Thou/mm3 (0.0-0.5); Eosinophils % (Auto) 0 % (0-10); Hematocrit 41.0 % (41.0-53.0); Hemoglobin 14.4 g/dL (13.5-16.0); Immature Granulocytes Auto 0.02 Thou/mm3 (0.00-0.00); Lymphocytes # (Auto) 1.0 Thou/mm3 (1.0-4.8); Lymphocytes % (Auto) 18 % (10-50); Mean Corpuscular HGB Conc 35.1 g/dl (31.0-37.0); Mean Corpuscular Hemoglobin 30.0 pg (25.0-35.0); Mean Corpuscular Volume 85 fL (80-100); Monocytes # (Auto) 0.2 Thou/mm3 (0.0-0.8); Monocytes % (Auto) 4 % (0-12); Neutrophils # (Auto) 4.0 Thou/mm3 (1.8-7.7); Neutrophils % (Auto) 76 % (37-80); Nucleated Red Blood Cell # 0.00 Thou/mm3 (0.00-0.00); Nucleated Red Blood Cell % 0 /100 WBC (0); Platelet Count 222 Thou/mm3 (140-440); RDW Standard Deviation 38.2 fL (35.1-43.9); Red Blood Count 4.80 Miln/mm3 (4.50-5.90); White Blood Count 5.2 Thou/mm3 (3.8-10.6)
[2025-07-09 10:07] LABS: D-Dimer < 250 ng/mL (<600)
[2025-07-09 10:16] LABS: Alanine Aminotransferase 14 U/L (10-49); Albumin, Serum 5.0 gm/dL (3.5-5.0); Albumin/Globulin Ratio 2.6 (1.2-2.2); Alkaline Phosphatase 54 U/L (46-116); Anion Gap 7 (7-16); Aspartate Amino Transferase 17 U/L (0-34); BUN/Creatinine Ratio 9 Ratio (12-20); Bilirubin,Total 0.7 mg/dL (0.3-1.2); Blood Urea Nitrogen 9 mg/dL (9-23); Calcium 9.9 mg/dL (8.3-10.6); Calcium (Corrected) 9.9 mg/dL (8.5-10.1); Carbon Dioxide 29.6 mMol/L (20.0-31.0); Chloride 105 mMol/L (98-107); Creatinine (Component) 1.0 mg/dL (0.6-1.3); Estimated Creatinine Clearance 100.4 mL/min (>60); Free T4 (Free Thyroxine) 1.34 ng/dL (0.89-1.76); Globulin 1.9 gm/dL (2.3-3.5); Glucose 119 mg/dL (74-106); Osmolality,Calculated 282 (275-295); Potassium 3.8 mMol/L (3.4-5.1); Sodium 142 mMol/L (136-145); Thyroid Stimulating Hormone 0.68 uIU/mL (0.55-4.78); Total Protein 6.9 gm/dL (5.7-8.2); Troponin I < 0.020 ng/mL (0.0-0.045); eGFR > 60 See Note
[2025-07-09 10:23] VITALS: BP 135/83; PULSE 84; RESP 18; TEMP 36.7; O2SAT 100
[2025-07-09 10:29] LABS: Misc Send Out* See Sep Rpt
[2025-07-09 10:48] VITALS: BP 127/96; BP 135/83; BP 139/103; PULSE 72; PULSE 82; PULSE 88
== END 2025-07-09 11:10 | disposition home or self-care (01) ==
PROVIDERS: Nurse Practitioner Primary Care; Emergency Provider Family Medicine; PCP Nurse Practitioner Family
DX: I49.3 Ventricular premature depolarization (principal); I10 Essential (primary) hypertension
CPT/HCPCS: 36415; 71046; 80053; 83835; 84439; 84443; 84484; 85025; 85379; 93005; 99283

== ENCOUNTER 2025-07-10 13:40 | Outpatient (AMB) | payer MEDICAID, SELFPAY ==
[2025-07-10 14:09] VITALS: BP 123/83; PULSE 81; RESP 16; TEMP 36.7; O2SAT 98; BMI 24.0
--- NOTE | 2025-07-10 14:09 | ACNOTE_ITS ---
Vital Signs 07/10/25 14:09 Height 1.78 m Height Method Stated Weight 75.977 kg Weight Measurement Method Standing Scale BMI 24.0 BP 123/83 Blood Pressure Source Automatic Cuff Blood Pressure Location Right Upper Arm Position Sitting Respiration 16 Pulse 81 Pulse Source Monitor Temp 98.1 F Temp Source Temporal Artery Scan Pulse Oximetry (%) 98 Oxygen Delivery Method Room Air Allergies/Meds Allergies & Medications Allergies Penicillins Allergy (Severe, Verified 07/10/25 14:10) Redness of Skin Medication Reconciliation lisinopril 10 mg tablet 10 mg PO DAILY High blood pressure 12/03/24 [History Confirmed 07/10/25] dicyclomine 10 mg capsule 10 mg PO BID PRN abdominal pain 12/04/24 [History Confirmed 07/10/25] loratadine 10 mg tablet (Allergy Relief (loratadine)) 10 mg PO QDAY 12/04/24 [History Confirmed 07/10/25] clarithromycin 500 mg tablet 500 mg PO BID #20 tabs 04/20/25 [Rx Confirmed 07/10/25] lidocaine HCl 2 % mucosal solution (Lidocaine Viscous) 10 ml PO Q4HR PRN sore throat #100 mL 04/20/25 [Rx Confirmed 07/10/25] acetaminophen-caffeine 500 mg-65 mg tablet (Excedrin Tension Headache) 1 tab PO Q8H PRN pain #30 tabs 06/21/25 [Rx Confirmed 07/10/25] acetaminophen 500 mg tablet (Tylenol Extra Strength) 1,000 mg (2 x 500 mg) PO Q6H PRN pain #30 tabs 06/26/25 [Rx Confirmed 07/10/25] famotidine 40 mg tablet (Pepcid) 40 mg PO QDAY #30 tabs 06/26/25 [Rx Confirmed 07/10/25] ondansetron 4 mg disintegrating tablet 4 mg PO Q6H PRN nausea and vomiting #10 tabs 06/26/25 [Rx Confirmed 07/10/25] alprazolam 0.5 mg tablet (Xanax) 0.5 mg PO BID PRN anxiety #20 tabs 07/04/25 [Rx Confirmed 07/10/25] alprazolam 0.5 mg tablet (Xanax) 0.5 mg PO QHS PRN 07/10/25 [History Confirmed 07/10/25] diazepam 2 mg tablet (Valium) 2 mg PO BID PRN 07/10/25 [History Confirmed 07/10/25] MA Intake Visit Data Collection New Patient or Established: Established Patient (seen at [facility] within 3 years) Seen by Clinical Staff ONLY (RN/HARRIET): No Pain Present Currently: No Pain scale:: 0 Pain Scale Used: [place]/[employer] Required: No PCP or OBGYN visit in last 3 months: Yes Do You Feel Safe at Home: Yes Authorities Contacted: N/A Smoking Status Smoking Status: Never smoker Immunization / Flu Flu Vaccine in the Last 12 Months: No Flu Vaccine Exclusion Criteria: Refused by Patient Past Medical History Past Medical History NEUROLOGIC: Negative Neurological Disorders or Seizures CARDIAC: Positive Cardiac Disorders (tachycardia) and Hypertension; Negative Congestive Heart Failure or Hypotension RESPIRATORY: Negative Chronic Obstructive Pulmonary Disease (COPD) or Asthma GASTROINTESTINAL: Positive Gastrointestinal Disorders, Gastrointestinal Bleed and Hemorrhoids GENITOURINARY: Negative Genitourinary Disorders or Renal Disease MUSCULOSKELETAL: Positive Arthritis ENDOCRINE: Negative Endocrine Disorders, Diabetes Mellitus Type 1 or Diabetes Mellitus Type 2 HEMATOLOGIC: Negative Blood Disorders or Sickle Cell Disease PSYCHO/SOCIAL: Positive Anxiety OTHER HISTORY: Positive Chicken Pox; Negative Hospitalization, Autoimmune Disease, Falls, Blood Transfusions, Blood Transfusion Reaction, Anesthesia Reactions, MRSA or Cancer Family History FAMILY HISTORY: Positive Family Cardiac Disorders, Family Gastrointestinal Problems and Family Cancer; Negative Family Psychiatric Problems or Family Anesthesia Reaction Surgical History SURGICAL: Negative Endocrine Surgery, Ear Surgery, Abdominal Surgery, Nephrectomy, Joint Replacement or Neurologic Surgery Social History SMOKING STATUS: Smoking status: Never smoker SECOND HAND EXPOSURE: second hand exposure: No ALCOHOL: Alcohol Intake: Never HOUSING: Housing: House LIVES WITH: Lives With: Significant Other Patient Portal Questionaires PHQ-9 PHQ-2 Over the last 2 weeks, how often have you been bothered by any of the following problems? 1. Little interest or pleasure in doing things: not at all 2. Feeling down, depressed, or hopeless: not at all Total score: 0 Social History Living Situation History Housing: House Tobacco History Smoking Status: Never smoker Second Hand Smoke Exposure: No Alcohol History Alcohol Intake: Never Domestic Abuse History Do You Feel Safe at Home: Yes Review of Systems Report any current symptoms Only answer those that you have currently: Past Medical History Past Medical History Have you ever been diagnosed with any of the following: Neurological Problems Seizures: No Cardiology Problems Congestive Heart Failure: No Hypertension: Yes Hypotension: No Respiratory Problems Chronic Obstructive Pulmonary Disease (COPD): No Asthma: No Stomache/Intestinal Problems Gastrointestinal Bleed: Yes Hemorrhoids: Yes Genital/Urinary Problems Renal Disease: No Musculoskeletal Problems Arthritis: Yes Endocrine Problems Diabetes Mellitus Type 1: No Diabetes Mellitus Type 2: No Blood Problems Sickle Cell Disease: No Psychologic Problems Anxiety: Yes Other Problems Hospitalization: No Autoimmune Disease: No Falls: No Blood Transfusions: No Blood Transfusion Reaction: No Anesthesia Reactions: No MRSA: No Chicken Pox: Yes Cancer: No History of Present Illness HPI Narrative The patient reports recurrent episodes of sudden-onset tachycardia that began around July of last year, initially occurring once per month but now increasing in frequency over the past 1?2 months. Episodes occur at rest, especially between 3?4 AM, waking him from sleep with feelings of panic and HR readings in the 120?150s on his Apple Watch. He also describes a recent episode while eating cereal, during which heart rate reached 167, prompting an ED visit. ED EKGs over the past 3 days all showed normal sinus rhythm, HR 80?81. He reports intermittent sharp left-sided chest pain, mild shortness of breath during exertion, but no syncope, presyncope, leg swelling, or radiation of pain. No alcohol, caffeine, or energy drinks. Stopped caffeine 8 months ago. No stimulant use. UTOX negative in the ED. Cardiology (Dr. Grey) previously performed stress test (abnormal) followed by angiogram (normal) and echo (normal). A 24-hr Holter previously showed only occasional PVCs. Cardiology is working on obtaining approval for a 7-day Holter, pending insurance. Patient was prescribed flecainide PRN, took one dose and felt nauseated, then stopped. Patient reports increased confusion between whether these episodes are cardiac vs. panic-related. Primary care recently prescribed paroxetine (patient will start tomorrow). He uses diazepam 2 mg PRN, approx. 2 times weekly, which occasionally helps. Received Xanax in the ED once, not taking regularly. He reports snoring, daytime fatigue, and non-restorative sleep, but no witnessed apneas. No prior sleep study. GI: longstanding gastritis confirmed on EGD in 2024. Previously on Protonix but recently held due to H. pylori testing. No current abdominal pain, nausea, vomiting, melena, hematochezia, or weight loss beyond intentional prior weight loss (from 220 lbs ->167 lbs). Family history notable for early cardiac disease in father (smoker, in 50s), grandfather, and stepbrother (valve surgery). Main concern today: establishing new PCP and clarifying next steps for palpitations and anxiety vs. arrhythmia evaluation. Objective/Exam Narrative Physical exam: General: Alert, oriented ?3; anxious but cooperative; no acute distress. HEENT: PERRL; no conjunctival pallor; mucosa moist; no JVD. Cardiac: Regular rate and rhythm; normal S1/S2; no murmurs, rubs, or gallops. Lungs: Clear to auscultation bilaterally; no wheezes, rales, or rhonchi. Abdomen: Soft, NT, ND, active bowel sounds. Neuro: CN intact; strength 5/5 throughout; sensation intact. Extremities: No edema; pulses 2+; no cyanosis. Psych: Appropriate affect; anxious discussing symptoms. Assessment & Plan Diagnosis / Problem List (1) Palpitations: Status: Acute Assessment & Plan: Likely supraventricular tachycardia vs sinus tachycardia vs panic episodes. Multiple ED visits show normal sinus rhythm, normal labs, normal troponin, normal thyroid studies, normal electrolytes, and structurally normal heart (normal angiogram and echo). However, symptoms are recurrent and disruptive to sleep. Plan: * Continue metoprolol as prescribed by cardiology. * Avoid flecainide until rhythm is documented; patient unable to tolerate first dose. * Proceed with 7-day Holter monitor as planned by Dr. Grey. * Instruct patient to document episodes with [employer]Mobile and Apple Watch. * Follow up with cardiology after Holter interpretation. (2) Generalized anxiety disorder with panic attacks: Status: Acute Assessment & Plan: Symptoms overlap with cardiac episodes. Diazepam helps some episodes. Paroxetine was prescribed and patient plans to start tomorrow. Plan: * Start paroxetine daily; discussed expected onset 4?6 weeks. * Continue diazepam 2 mg PRN sparingly. * Counseling: anxiety can trigger sympathetic surges leading to tachycardia. * Schedule close PCP follow-up in 4-6 weeks to reassess paroxetine effect. (3) FRANCESCO (obstructive sleep apnea): Status: Acute Assessment & Plan: Snoring, nighttime awakenings, non-restorative sleep, daytime fatigue. FRANCESCO can contribute to palpitations and nocturnal tachycardia. Plan: - Ordered sleep study. (4) Hypertension: Status: Acute Qualifiers: Hypertension type: primary hypertension Qualified Code(s): I10 - Essential (primary) hypertension Assessment & Plan: BP today 123/83, well-controlled on lisinopril and metoprolol. Plan: * Continue lisinopril 10 mg daily. * Continue metoprolol. * Encourage exercise and sodium reduction. (5) Gastritis, unspecified, without bleeding: Status: Acute Qualifiers: Gastritis type: unspecified gastritis Chronicity: unspecified Qualified Code(s): K29.70 - Gastritis, unspecified, without bleeding Assessment & Plan: History of mild chronic inactive gastritis on EGD. PPI held for H. pylori testing. Plan: * Resume famotidine/Protonix after H. pylori testing completed. * Avoid caffeine, NSAIDs, spicy/acidic foods. * Follow up with GI as needed. Plan 39-year-old male with history of hypertension and chronic gastritis presenting for evaluation of recurrent palpitations, nocturnal tachycardia, and possible panic episodes, seeking new PCP and clarification of cardiology plan. Orders: Referrals Sleep Study G47.33 - Obstructive sleep apnea (adult) (pediatric) Additional Plan ----- Plan discussed with attending physician Dr. Fara Padron MD PGY-1 Internal Medicine Office Procedures [facility] Level of Care Nursing/Assessment Patient Status: Established Patient Nursing Assessment/Reassessment: Medication Reconciliation, Update PMH in EMR and Vital Signs Coordination of Care: Complex Care and Chronic Disease 1-5, Complex Care/Chronic Disease 5 or more, Consent,records obtained, informed consent, Lab and Imaging orders, Results/Orders obtained and Staff clarify orders Established Patient Charge Established Patient Point Assignment: 125 Established Patient Point Charge: EP Level 4 (120-155) TB Screening LTBI Screening: Has patient traveled, was born, or resided for at least 1 month, or frequent border crossing into a country with an elevated TB rate: No Immunosuppression, current or planned (HIV, organ transplant, treated with biologic agents, steroids, or other immunosuppression medication): No Close contact to someone with infectious TB disease during lifetime: No Homelessness or incarceration, current or past: No TB testing indicated at this time (at least 1 yes above): No
== END 2025-07-10 15:10 | disposition home or self-care (01) ==
LOC: HODAHC 13:40
PROVIDERS: Supervising Provider Internal Medicine
DX: R00.2 Palpitations (principal); F41.1 Generalized anxiety disorder; G47.33 Obstructive sleep apnea (adult) (pediatric); I10 Essential (primary) hypertension; K29.70 Gastritis, unspecified, without bleeding
CPT/HCPCS: 99214; G0463

== ENCOUNTER 2025-07-15 12:59 | Emergency (ER) | payer MEDICAID, SELFPAY ==
[2025-07-15 13:00] VITALS: BMI 24.3
--- NOTE | 2025-07-15 13:02 | EKG_ITS ---
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
--- NOTE | 2025-07-15 13:08 | XR_ITS ---
EXAMINATION: PA lateral chest 2 views TECHNIQUE: Upright PA lateral chest 2 views Date and time: July 15, 2025, 1317 hours, comparison July 09, 2025 INDICATIONS: Chest pain tachycardia today FINDINGS: Normal heart size No lobar pneumonia or pulmonary edema. Osseous structures are intact IMPRESSION: No active disease
[2025-07-15 13:12] VITALS: BP 127/83; PULSE 86; RESP 18; TEMP 37; O2SAT 99; BMI 23.8
--- NOTE | 2025-07-15 13:24 | PD.EDRME ---
Rapid Medical Screening Exam E Arrival date/time: 07/15/25 12:59 39-year-old male presents to the Emergency Department for complaints of chest pain Chief Complaint: Chest Pain Vital signs: Vital Signs Temperature 98.6 F 07/15/25 13:12 Pulse Rate 86 07/15/25 13:12 Respiratory Rate 18 07/15/25 13:12 Blood Pressure 127/83 07/15/25 13:12 Pulse Oximetry (%) 99 07/15/25 13:12 Oxygen Delivery Method Room Air 07/15/25 13:12 Vital signs reviewed by provider: Yes Exam: On exam well-appearing does not appear look toxic no acute distress Clinical Impression: Lab work imaging and EKG obtained
[2025-07-15 13:42] LABS: Basophils # (Auto) 0.0 Thou/mm3 (0.0-0.2); Basophils % (Auto) 1 % (0-2.5); Eosinophils # (Auto) 0.1 Thou/mm3 (0.0-0.5); Eosinophils % (Auto) 1 % (0-10); Hematocrit 42.5 % (41.0-53.0); Hemoglobin 14.6 g/dL (13.5-16.0); Immature Granulocytes Auto 0.01 Thou/mm3 (0.00-0.00); Lymphocytes # (Auto) 1.1 Thou/mm3 (1.0-4.8); Lymphocytes % (Auto) 19 % (10-50); Mean Corpuscular HGB Conc 34.4 g/dl (31.0-37.0); Mean Corpuscular Hemoglobin 29.7 pg (25.0-35.0); Mean Corpuscular Volume 86 fL (80-100); Monocytes # (Auto) 0.3 Thou/mm3 (0.0-0.8); Monocytes % (Auto) 6 % (0-12); Neutrophils # (Auto) 4.3 Thou/mm3 (1.8-7.7); Neutrophils % (Auto) 73 % (37-80); Nucleated Red Blood Cell # 0.00 Thou/mm3 (0.00-0.00); Nucleated Red Blood Cell % 0 /100 WBC (0); Platelet Count 238 Thou/mm3 (140-440); RDW Standard Deviation 39.6 fL (35.1-43.9); Red Blood Count 4.92 Miln/mm3 (4.50-5.90); White Blood Count 5.9 Thou/mm3 (3.8-10.6)
[2025-07-15 13:53] LABS: Alanine Aminotransferase 13 U/L (10-49); Albumin, Serum 5.3 gm/dL (3.5-5.0); Albumin/Globulin Ratio 2.3 (1.2-2.2); Alkaline Phosphatase 62 U/L (46-116); Anion Gap 9 (7-16); Aspartate Amino Transferase 16 U/L (0-34); BUN/Creatinine Ratio 13 Ratio (12-20); Bilirubin,Total 0.6 mg/dL (0.3-1.2); Blood Urea Nitrogen 13 mg/dL (9-23); Calcium 9.8 mg/dL (8.3-10.6); Calcium (Corrected) 9.8 mg/dL (8.5-10.1); Carbon Dioxide 28.7 mMol/L (20.0-31.0); Chloride 103 mMol/L (98-107); Creatinine (Component) 1.0 mg/dL (0.6-1.3); Estimated Creatinine Clearance 100.4 mL/min (>60); Globulin 2.3 gm/dL (2.3-3.5); Glucose 127 mg/dL (74-106); Lipase 63 U/L (12-53); Osmolality,Calculated 283 (275-295); Potassium 4.1 mMol/L (3.4-5.1); Sodium 141 mMol/L (136-145); Total Protein 7.6 gm/dL (5.7-8.2); Troponin I < 0.002 ng/mL (0.0-0.045); eGFR > 60 See Note
[2025-07-15 15:24] LABS: Troponin I < 0.002 ng/mL (0.0-0.045)
[2025-07-15 15:53] VITALS: BP 119/82; PULSE 84; RESP 18; TEMP 36.5; O2SAT 100
--- NOTE | 2025-07-15 16:05 | EDNOTE_ITS ---
ED Chest Pain RME/HPI General Chief Complaint: Chest Pain Stated Complaint: CHEST PAIN X2O MIN Time Seen by Provider: 07/15/25 14:46 Arrival date/time: 07/15/25 12:59 39-year-old male patient who is known to us, came in for evaluation regarding chest pain. Patient told me that he is having chest pain associated with palpitation, earlier this morning. Lasting for few minutes. Patient is currently on Holter monitor, followed by link trainer maintenance worker from [place]. Denies any cough denies any other complaints. Patient has been here for same complaint several times already, for the last 2 weeks has been there for at least 3 times already. Same complaints. Denies any other complaints. RME / HPI RME / HPI narrative: 07/15/25 12:59 39-year-old male presents to the Emergency Department for complaints of chest pain Exam: On exam well-appearing does not appear look toxic no acute distress Impression: Lab work imaging and EKG obtained Related Data Home Medications ?Medication ?Instructions ?Recorded ?Confirmed lisinopril 10 mg tablet 10 mg PO DAILY High blood pr essure 12/03/24 07/10/25 dicyclomine 10 mg capsule 10 mg PO BID PRN abdominal p ain 12/04/24 07/10/25 loratadine 10 mg tablet (Allergy 10 mg PO QDAY 5 07/10/25 Relief (loratadine)) alprazolam 0.5 mg tablet (Xanax) 0.5 mg PO QHS PRN 07/10/25 diazepam 2 mg tablet (Valium) 2 mg PO BID PRN 07/10/25 07/10/25 Previous Rx's ?Medication ?Instructions ?Recorded clarithromycin 500 mg tablet 500 mg PO BID #20 tabs lidocaine HCl 2 % mucosal solution 10 ml PO Q4HR PRN s ore throat #100 04/20/25 (Lidocaine Viscous) mL acetaminophen-caffeine 500 mg-65 1 tab PO Q8H PRN pain #30 tabs 06/21/25 mg tablet (Excedrin Tension Headache) acetaminophen 500 mg tablet 1,000 mg (2 x 500 mg) PO Q 6H PRN 06/26/25 (Tylenol Extra Strength) pain #30 tabs famotidine 40 mg tablet (Pepcid) 40 mg PO QDAY #30 tab s 06/26/25 ondansetron 4 mg disintegrating 4 mg PO Q6H PRN nausea and 06/26/25 tablet vomiting #10 tabs alprazolam 0.5 mg tablet (Xanax) 0.5 mg PO BID PRN anx iety #20 tabs 07/04/25 Allergies Allergy/AdvReac Type Severity Reaction Status Date / Time Penicillins Allergy Severe Redness of Verified 07/10/25 14:10 Skin Review of Systems Review of Systems Narrative Review of Systems: Review of system reviewed and within normal limits except mentioned in HPI ED Exam Narrative Physical exam: VITAL SIGNS: Reviewed. GENERAL APPEARANCE: Alert and interactive, follows commands, no acute distress, HEAD AND FACE: Non-traumatic. ENT: PERRL, pink conjunctivitis, eyelid no trauma, Mucous membrane moist. NECK: Supple, nontender, no nuchal rigidity. CHEST: No tenderness, no crepitus, no paradoxical movement, no retractions. LUNGS: Clear, well ventilated, symmetric, no rales, no wheezing, no ronchi, no stridor, good breath sounds bilaterally. HEART: Regular rate, regular rhythm, no murmur, no gallops. ABDOMEN: Soft, positive bowel sounds, nondistended, no guarding, nontender, no rebound, no masses, RECTAL: Deferred. GENITAL: Deferred. NEUROLOGICAL: Gross motor function intact sensory function intact, Appropriate for age. MUSCULOSKELETAL: low back nontender, full range of motion. EXTREMITIES: Nontender, full range of motion. SKIN: Color pink, dry, no rash, no lacerations, no abrasions, no contusions. LYMPHATICS: Deferred. Course Quality Measures none Orders Category Date Time Status EKG (ED ONLY) *Do not use* NOW Care 07/15/25 13:02 Completed EKG (ED Only) Stat Exams 07/15/25 13:02 Draft XR chest 2V Stat Exams 07/15/25 13:08 Completed CBC Stat Lab 07/15/25 13:16 Completed Comprehensive Metabolic Panel Stat Lab 07/15/25 13:16 Completed Lipase Stat Lab 07/15/25 13:16 Completed Troponin I Stat Lab 07/15/25 13:16 Completed Troponin I Stat Lab 07/15/25 14:57 Completed Vital Signs Vital signs: Vital Signs Temperature 98.6 F 07/15/25 13:12 Pulse Rate 86 07/15/25 13:12 Respiratory Rate 18 07/15/25 13:12 Blood Pressure 127/83 07/15/25 13:12 Pulse Oximetry (%) 99 07/15/25 13:12 Oxygen Delivery Method Room Air 07/15/25 13:12 Chest Pain MDM Narrative MDM Narrative:: 39-year-old male patient who is known to us, came in for evaluation regarding chest pain. Patient told me that he is having chest pain associated with palpitation, earlier this morning. Lasting for few minutes. Patient is currently on Holter monitor, followed by link trainer maintenance worker from [place]. Denies any cough denies any other complaints. Patient has been here for same complaint several times already, for the last 2 weeks has been there for at least 3 times already. Same complaints. Denies any other complaints. Patient's workup all came back unremarkable including troponin x 2. Patient's EKG showed normal sinus rhythm, ventricular rate of 81 bpm, no ST segment elevation or depression noted. Blood pressure was noted to be 119/82 heart rate of 84 prior to discharge. I personally reviewed and interpreted the x-ray of this patient. There is no acute abnormalities found, no infiltrates no pneumothorax no hemothorax normal chest x-ray. Review of other structures was without significant abnormal findings also. I additionally reviewed the radiologist report and agree with the interpretation. Patient symptoms are completely gone prior to discharge. Patient data External records reviewed:: None Clinical information provided by:: patient Social determinants that could affect healthcare access:: none Patient has the following chronic illnesses:: Hypertension How is presenting disease/condition affected by chronic disease/condition?: exacerbated by Evaluation data The following diagnostics were reviewed and interpreted by me:: lab results, radiology exam(s) and EKG tracing(s) Lab and/or radiology exams considered but not ordered:: None Interpretation Summary: See above Medications / Prescriptions Medications or Prescriptions considered but not ordered:: None Medication administrations:: None Consultations Consultation(s) initiated? (list below): No Consultation #1 (Physician, Specialty, Details): None Diagnosis Chest Pain Differential Diagnosis: atypical chest pain and chest pain Most likely diagnosis given after review of the tests above:: Chest pain Admission Indicated Admission indicated?: not indicated Admission Request Was there a request for admission?: No Disposition Plan Disposition Plan: Discharge Discharge Attestation Discharge Attestation: The patient was given an opportunity to ask questions and understood the discharge instructions. Discharge instructions specifically effects, indications for sooner follow up or return to the emergency department, and the expected course of current diagnosis. Patient condition: Stable Discharge Plan Plan Patient Disposition: HOME (Self Care) Discharge Disposition comment: Stable Prescriptions/Referrals Prescriptions/Med Rec: No Action alprazolam [Xanax] 0.5 mg tablet 0.5 mg PO QHS PRN diazepam [Valium] 2 mg tablet 2 mg PO BID PRN clarithromycin 500 mg tablet 500 mg PO BID Qty: 20 0RF lidocaine HCl [Lidocaine Viscous] 2 % solution 10 ml PO Q4HR PRN (Reason: sore throat) Qty: 100 0RF Excedrin Tension Headache 500-65 mg tablet 1 tab PO Q8H PRN (Reason: pain) Qty: 30 0RF famotidine [Pepcid] 40 mg tablet 40 mg PO QDAY Qty: 30 0RF acetaminophen [Tylenol Extra Strength] 500 mg tablet 1,000 mg PO Q6H PRN (Reason: pain) Qty: 30 0RF ondansetron 4 mg tablet,disintegrating 4 mg PO Q6H PRN (Reason: nausea and vomiting) Qty: 10 0RF lisinopril 10 mg tablet 10 mg PO DAILY dicyclomine 10 mg capsule 10 mg PO BID PRN (Reason: abdominal pain) Patient Comments: TAKE 1 CAPSULE BY MOUTH TWICE DAILY NEEDED loratadine [Allergy Relief (loratadine)] 10 mg tablet 10 mg PO QDAY alprazolam [Xanax] 0.5 mg tablet 0.5 mg PO BID PRN (Reason: anxiety) Qty: 20 0RF Referrals: Tricia Laird, ASSOCIATE TEAM PHYSICIAN [Primary Care Provider] - In 1 week Problem List Clinical Impression: Chest pain Patient/Caregiver Discharge Instructions Discharge Activity: activity as tolerated Education Materials: ED Chest Pain, Uncertain Cause Additional Instructions: Thank you for the opportunity for serving you today. You are stable for discharged . You are advised to: Follow-up with your PCP in 1 to 2 days/follow-up with your link trainer maintenance worker next week Return to ED for worsening of symptoms Print Language: Czech Stand Alone Forms: Nadeen Award Info., Patient Portal Info Letter SOLOMON/MYRIAM Supervising Physician SOLOMON/MYRIAM Supervising Physician: MD Stacey
== END 2025-07-15 16:53 | disposition home or self-care (01) ==
PROVIDERS: Nurse Practitioner Family; Nurse Practitioner Primary Care; Emergency Provider Emergency Medicine; PCP Nurse Practitioner Family
DX: R07.9 Chest pain, unspecified (principal); R00.2 Palpitations; I10 Essential (primary) hypertension
CPT/HCPCS: 36415; 71046; 80053; 83690; 84484; 85025; 93005; 99283